=== PATIENT | male | born 1965 | race Caucasian/White ===

== ENCOUNTER 2022-03-28 17:42 | Inpatient (IN) | payer MEDICAID, MEDICARE, OTHER ==
--- NOTE | 2022-03-28 18:23 | ED ---
General Adult HPI - General Source: patient, police, EMS, RN notes reviewed, old records reviewed Mode of arrival: EMS Limitations: altered mental status <Zay Guerrero - Last Filed: 03/28/22 20:49> <Zay Truong - Last Filed: 03/29/22 03:12> - General Chief complaint: Psychiatric Symptoms Stated complaint: EPS eval Time Seen by Provider: 03/28/22 17:42 - History of Present Illness Initial comments: This is a 37-year-old male who has a past medical history significant for schizophrenia. According to the police girlfriend told him that he had stopped taking his meds a while ago. Patient has been acting more more bizarre over the last 3 days according to the officer they were called to the residence at least 3 times over the last few days. Patient was once found with a knife yelling and screaming neighbors. Patient on another occasion was rifling through the neighbor's mailbox. And today they found him crawling around on all fours not making any sense in the backyard. When the police took him into custody called EMS the patient is only been mumbling that he loves her. Patient does not state that his knee does not have any further conversation. (Zay Guerrero) - Related Data Allergies Allergy/AdvReac Type Severity Reaction Status Date / Time Unable to Assess Allergy Verified 03/28/22 17:51 Review of Systems ROS Other: All systems not noted in ROS Statement are negative. <Zay Guerrero - Last Filed: 03/28/22 20:49> ROS Other: All systems not noted in ROS Statement are negative. <Zay Truong - Last Filed: 03/29/22 03:12> ROS Statement: Those systems with pertinent positive or pertinent negative responses have been documented in the HPI. Past Medical History Past Medical History: Unable to Obtain History of Any Multi-Drug Resistant Organisms: Unobtainable Past Surgical History: Unable to Obtain Past Psychological History: Schizophrenia Smoking Status: Unknown if ever smoked Past Alcohol Use History: Unable to Obtain Past Drug Use History: Unable to Obtain <Zay Guerrero - Last Filed: 03/28/22 20:49> General Exam Limitations: altered mental status <Zay Guerrero - Last Filed: 03/28/22 20:49> Limitations: altered mental status General appearance: alert, in no apparent distress, anxious Head exam: Present: atraumatic, normocephalic, normal inspection Eye exam: Present: normal appearance, PERRL, EOMI. Absent: scleral icterus, conjunctival injection, periorbital swelling ENT exam: Present: normal exam, mucous membranes moist Neck exam: Present: normal inspection. Absent: tenderness, meningismus, lymphadenopathy Respiratory exam: Present: normal lung sounds bilaterally. Absent: respiratory distress, wheezes, rales, rhonchi, stridor Cardiovascular Exam: Present: regular rate, normal rhythm, normal heart sounds. Absent: systolic murmur, diastolic murmur, rubs, gallop, clicks GI/Abdominal exam: Present: soft, normal bowel sounds. Absent: distended, tenderness, guarding, rebound, rigid Extremities exam: Present: normal inspection, full ROM, normal capillary refill. Absent: tenderness, pedal edema, joint swelling, calf tenderness Back exam: Present: normal inspection Neurological exam: Present: alert, oriented X3, CN II-XII intact Psychiatric exam: Present: normal affect, normal mood Skin exam: Present: warm, dry, intact, normal color. Absent: rash <Zay Truong - Last Filed: 03/29/22 03:12> - General Exam Comments Initial Comments: GENERAL: Patient is well-developed and well-nourished. Patient is nontoxic and well- hydrated and is in no acute distress. ENT: Neck is soft and supple. No significant lymphadenopathy is noted. Oropharynx is clear. Moist mucous membranes. Neck has full range of motion without eliciting any pain. EYES: The sclera were anicteric and conjunctiva were pink and moist. Extraocular movements were intact and pupils were equal round and reactive to light. Eyelids were unremarkable. PULMONARY: Unlabored respirations. Good breath sounds bilaterally. No audible rales rhonchi or wheezing was noted. CARDIOVASCULAR: There is a regular rate and rhythm without any murmurs gallops or rubs. ABDOMEN: Soft and nontender with normal bowel sounds. SKIN: Skin is clear with no lesions or rashes and otherwise unremarkable. NEUROLOGIC: Patient is alert and oriented unable to assess orientation because he won't respond to questions. Cranial nerves II through XII are grossly intact. Motor and sensory are also intact. MUSCULOSKELETAL: Normal extremities with adequate strength and full range of motion. LYMPHATICS: No significant lymphadenopathy is noted PSYCHIATRIC: Patient is not speaking to us at this time he just mumbling that he loves her (Zay Guerrero) Course <Zay Truong - Last Filed: 03/29/22 03:12> Vital Signs 03/28/22 03/28/22 17:43 19:35 Temperature 98.1 F Pulse Rate 92 75 Respiratory 18 16 Rate Blood Pressure 121/74 O2 Sat by Pulse 98 100 Oximetry - Reevaluation(s) Reevaluation #1: 03/29/22 03:11 Medical record reviewed (Zay Truong) Reevaluation #2: 03/29/22 03:11 Medical clear for psychiatric evaluation (Zay Truong) Medical Decision Making - Lab Data Result diagrams: 03/28/22 18:06 03/28/22 18:06 <Zay Guerrero - Last Filed: 03/28/22 20:49> - Lab Data Result diagrams: 03/28/22 18:06 03/28/22 18:06 <Zay Truong - Last Filed: 03/29/22 03:12> - Medical Decision Making I interpreted the EKG. EKG shows sinus rhythm at 90 bpm DC interval 270 QRS is 90 QT interval 325 QTC is 372. Patient's EKG shows no ST segment elevation or depression. Dr. Truong be taking over the care of this patient at 9 PM (Zay Guerrero) 57 male to the emergency department for evaluation. Patient will be admitted for psychiatric evaluation and treatment (Zay Truong) - Lab Data Lab Results 03/28/22 03/28/22 03/28/22 Range/Units 18:06 18:06 19:35 WBC 15.8 H (3.8-10.6) k/uL RBC 4.67 (4.30-5.90) m/uL Hgb 15.2 (13.0-17.5) gm/dL Hct 41.8 (39.0-53.0) % MCV 89.6 (80.0-100.0) fL MCH 32.5 (25.0-35.0) pg MCHC 36.3 (31.0-37.0) g/dL RDW 13.5 (11.5-15.5) % Plt Count 526 H (150-450) k/uL MPV 7.7 Neutrophils % 86 % Lymphocytes % 7 % Monocytes % 5 % Eosinophils % 1 % Basophils % 0 % Neutrophils # 13.6 H (1.3-7.7) k/uL Lymphocytes # 1.1 (1.0-4.8) k/uL Monocytes # 0.7 (0-1.0) k/uL Eosinophils # 0.2 (0-0.7) k/uL Basophils # 0.1 (0-0.2) k/uL Sodium 141 (137-145) mmol/L Potassium 4.3 (3.5-5.1) mmol/L Chloride 107 (98-107) mmol/L Carbon Dioxide 19 L (22-30) mmol/L Anion Gap 15 mmol/L BUN 20 (9-20) mg/dL Creatinine 1.01 (0.66-1.25) mg/dL Est GFR (CKD-EPI)AfAm >90 (>60 ml/min/1.73 sqM) Est GFR (CKD-EPI)NonAf 83 (>60 ml/min/1.73 sqM) Glucose 130 H (74-99) mg/dL Calcium 10.3 H (8.4-10.2) mg/dL Total Bilirubin 0.5 (0.2-1.3) mg/dL AST 39 (17-59) U/L ALT 31 (4-49) U/L Alkaline Phosphatase 82 (38-126) U/L Total Protein 7.8 (6.3-8.2) g/dL Albumin 5.1 H (3.5-5.0) g/dL Urine Opiates Screen Not Detected (NotDetected) Ur Oxycodone Screen Not Detected (NotDetected) Urine Methadone Screen Not Detected (NotDetected) Ur Propoxyphene Screen Not Detected (NotDetected) Ur Barbiturates Screen Not Detected (NotDetected) U Tricyclic Antidepress Not Detected (NotDetected) Ur Phencyclidine Scrn Not Detected (NotDetected) Ur Amphetamines Screen Not Detected (NotDetected) U Methamphetamines Scrn Not Detected (NotDetected) U Benzodiazepines Scrn Not Detected (NotDetected) Urine Cocaine Screen Not Detected (NotDetected) U Marijuana (THC) Screen Not Detected (NotDetected) Serum Alcohol 59 mg/dL Coronavirus (PCR) (Not Detectd) 03/28/22 Range/Units 20:15 WBC (3.8-10.6) k/uL RBC (4.30-5.90) m/uL Hgb (13.0-17.5) gm/dL Hct (39.0-53.0) % MCV (80.0-100.0) fL MCH (25.0-35.0) pg MCHC (31.0-37.0) g/dL RDW (11.5-15.5) % Plt Count (150-450) k/uL MPV Neutrophils % % Lymphocytes % % Monocytes % % Eosinophils % % Basophils % % Neutrophils # (1.3-7.7) k/uL Lymphocytes # (1.0-4.8) k/uL Monocytes # (0-1.0) k/uL Eosinophils # (0-0.7) k/uL Basophils # (0-0.2) k/uL Sodium (137-145) mmol/L Potassium (3.5-5.1) mmol/L Chloride (98-107) mmol/L Carbon Dioxide (22-30) mmol/L Anion Gap mmol/L BUN (9-20) mg/dL Creatinine (0.66-1.25) mg/dL Est GFR (CKD-EPI)AfAm (>60 ml/min/1.73 sqM) Est GFR (CKD-EPI)NonAf (>60 ml/min/1.73 sqM) Glucose (74-99) mg/dL Calcium (8.4-10.2) mg/dL Total Bilirubin (0.2-1.3) mg/dL AST (17-59) U/L ALT (4-49) U/L Alkaline Phosphatase (38-126) U/L Total Protein (6.3-8.2) g/dL Albumin (3.5-5.0) g/dL Urine Opiates Screen (NotDetected) Ur Oxycodone Screen (NotDetected) Urine Methadone Screen (NotDetected) Ur Propoxyphene Screen (NotDetected) Ur Barbiturates Screen (NotDetected) U Tricyclic Antidepress (NotDetected) Ur Phencyclidine Scrn (NotDetected) Ur Amphetamines Screen (NotDetected) U Methamphetamines Scrn (NotDetected) U Benzodiazepines Scrn (NotDetected) Urine Cocaine Screen (NotDetected) U Marijuana (THC) Screen (NotDetected) Serum Alcohol mg/dL Coronavirus (PCR) Not Detected (Not Detectd) Disposition <Zay Guerrero - Last Filed: 03/28/22 20:49> Is patient prescribed a controlled substance at d/c from ED?: No <Zay Truong - Last Filed: 03/29/22 03:12> Clinical Impression: Psychosis, Drug-induced psychotic disorder, Acute psychosis, Depression Disposition: TRANSFER TO PSYCH HOSP/UNIT Condition: Fair
--- NOTE | 2022-03-28 18:25 | XR ---
EXAMINATION TYPE: XR chest 1V portable DATE OF EXAM: 03/28/2022 COMPARISON: NONE HISTORY: Short of breath TECHNIQUE: Single view FINDINGS: Heart is normal. Lungs are clear of infiltrate. Thoracic aorta is atheromatous. No pleural effusion. No heart failure. IMPRESSION: No active cardiopulmonary disease.
[2022-03-28 18:26] LABS: Basophils # (A) 0.1 k/uL (0-0.2); Basophils % (A) 0 %; Eosinophils # (A) 0.2 k/uL (0-0.7); Eosinophils % (A) 1 %; HCT 41.8 % (39.0-53.0); HGB 15.2 gm/dL (13.0-17.5); Lymphocytes # (A) 1.1 k/uL (1.0-4.8); Lymphocytes % (A) 7 %; MCH 32.5 pg (25.0-35.0); MCHC 36.3 g/dL (31.0-37.0); MCV 89.6 fL (80.0-100.0); Mean Platelet Volume 7.7; Monocytes # (A) 0.7 k/uL (0-1.0); Monocytes % (A) 5 %; Neutrophils # (A) 13.6 k/uL (1.3-7.7); Neutrophils % (A) 86 %; Platelet Count 526 k/uL (150-450); RBC 4.67 m/uL (4.30-5.90); RDW 13.5 % (11.5-15.5); WBC 15.8 k/uL (3.8-10.6)
[2022-03-28] MEDS ORDERED: SODIUM CHLORIDE 0.9% 1,000 ML IV ONE (18:44)
[2022-03-28 18:45] LABS: ALT 31 U/L (4-49); AST 39 U/L (17-59); African American GFR (CKD) >90 (>60 ml/min/1.73 sqM); Albumin 5.1 g/dL (3.5-5.0); Alcohol 59 mg/dL; Alkaline Phosphatase 82 U/L (38-126); Anion Gap 15 mmol/L; Blood Urea Nitrogen 20 mg/dL (9-20); Calcium 10.3 mg/dL (8.4-10.2); Carbon Dioxide 19 mmol/L (22-30); Chloride 107 mmol/L (98-107); Glucose 130 mg/dL (74-99); Non-African American GFR(CKD) 83 (>60 ml/min/1.73 sqM); Potassium 4.3 mmol/L (3.5-5.1); Sodium 141 mmol/L (137-145); Total Bilirubin 0.5 mg/dL (0.2-1.3); Total Protein 7.8 g/dL (6.3-8.2)
[2022-03-28 20:23] LABS: Amphetamine Screen,Urine Not Detected (NotDetected); Barbiturate Screen,Urine Not Detected (NotDetected); Benzodiazepines Screen,Urine Not Detected (NotDetected); Cocaine Screen,Urine Not Detected (NotDetected); Methadone Screen, Urine Not Detected (NotDetected); Opiate Screen,Urine Not Detected (NotDetected); Oxycodone Screen, Urine Not Detected (NotDetected); Phencyclidine Screen,Urine Not Detected (NotDetected); Tricyclic Antidepressant,Urine Not Detected (NotDetected); Urn Cannabinoid Scrn Not Detected (NotDetected)
[2022-03-29] MEDS ORDERED: LORazepam 1 MG TAB PO PRN ×2 (03:08)
[2022-03-29] MEDS ORDERED: MAGNESIUM HYDROXIDE 2,400 MG/10 ML CUP PO PRN (03:08)
[2022-03-29] MEDS ORDERED: HALOPERIDOL LACTATE 5 MG/ML 1 ML VIAL IM PRN (03:08)
[2022-03-29] MEDS ORDERED: LORazepam 1 MG/0.5 ML VIAL IM PRN (03:17)
[2022-03-29] MEDS ORDERED: haloperidoL 5 MG TAB PO PRN (03:18)
[2022-03-29] MEDS: LORazepam 1 MG TAB PO PRN (03:34)
[2022-03-29 04:19] LABS: Appearance,Urine Cloudy (Clear); Bacteria,Urine Occasional /hpf; Bilirubin,Urine Negative (Negative); Blood,Urine Negative (Negative); Calcium Oxalate Crystals,Urine Moderate /hpf; Color,Urine Yellow; Glucose,Urine (UA) Negative (Negative); Ketones,Urine Trace (Negative); Leukocyte Esterase,Urine Negative (Negative); Mucus,Urine Occasional /hpf; Nitrite,Urine Negative (Negative); PH, Urine 6.5 (5.0-8.0); Protein,Urine 1+ (Negative); RBC,Urine 4 /hpf (0-5); Specific Gravity,Urine 1.025 (1.001-1.035); Squamous Epithelial Cell,Urine <1 /hpf (0-4); WBC,Urine 8 /hpf (0-5)
[2022-03-29] MEDS ORDERED: MAG HYDROX/AL HYDROX/SIMETH 355 ML BOTTLE PO PRN (08:00)
[2022-03-29 08:15] LABS: ALT 31 U/L (4-49); AST 41 U/L (17-59); Albumin 4.4 g/dL (3.5-5.0); Alkaline Phosphatase 70 U/L (38-126); Bilirubin, Delta 0.3 mg/dL (0.0-0.2); Bilirubin,Unconjugated 0.3 mg/dL (0.0-1.1); Total Bilirubin 0.6 mg/dL (0.2-1.3); Total Protein 6.9 g/dL (6.3-8.2)
[2022-03-29] MEDS ORDERED: diazePAM 5 MG TAB PO SCH (09:00)
[2022-03-29] MEDS ORDERED: traZODone HCL 50 MG TAB PO PRN (10:20)
--- NOTE | 2022-03-29 10:39 | P.HP ---
Psychiatric H&P - . H&P Date: 03/29/22 History & Physical: Allergies Allergy/AdvReac Type Severity Reaction Status Date / Time cephalexin From Keflex Allergy Intermediate Rash/Hives Verified 03/29/22 04:08 Vital Signs Temp 98.7 F 03/29/22 10:09 Pulse 67 03/29/22 10:09 Resp 17 03/29/22 10:09 BP 149/82 03/29/22 10:09 Pulse Ox 99 03/29/22 10:09 FiO2 Intake & Output 03/28/22 03/29/22 03/29/22 18:59 06:59 18:59 Weight 68.039 kg Laboratory Last Values WBC 15.8 k/uL (3.8-10.6) H 03/28/22 18:06 RBC 4.67 m/uL (4.30-5.90) 03/28/22 18:06 Hgb 15.2 gm/dL (13.0-17.5) 03/28/22 18:06 Hct 41.8 % (39.0-53.0) 03/28/22 18:06 MCV 89.6 fL (80.0-100.0) 03/28/22 18:06 MCH 32.5 pg (25.0-35.0) 03/28/22 18:06 MCHC 36.3 g/dL (31.0-37.0) 03/28/22 18:06 RDW 13.5 % (11.5-15.5) 03/28/22 18:06 Plt Count 526 k/uL (150-450) H 03/28/22 18:06 MPV 7.7 03/28/22 18:06 Neutrophils % 86 % 03/28/22 18:06 Lymphocytes % 7 % 03/28/22 18:06 Monocytes % 5 % 03/28/22 18:06 Eosinophils % 1 % 03/28/22 18:06 Basophils % 0 % 03/28/22 18:06 Neutrophils # 13.6 k/uL (1.3-7.7) H 03/28/22 18:06 Lymphocytes # 1.1 k/uL (1.0-4.8) 03/28/22 18:06 Monocytes # 0.7 k/uL (0-1.0) 03/28/22 18:06 Eosinophils # 0.2 k/uL (0-0.7) 03/28/22 18:06 Basophils # 0.1 k/uL (0-0.2) 03/28/22 18:06 Sodium 141 mmol/L (137-145) 03/28/22 18:06 Potassium 4.3 mmol/L (3.5-5.1) 03/28/22 18:06 Chloride 107 mmol/L (98-107) 03/28/22 18:06 Carbon Dioxide 19 mmol/L (22-30) L 03/28/22 18:06 Anion Gap 15 mmol/L 03/28/22 18:06 BUN 20 mg/dL (9-20) 03/28/22 18:06 Creatinine 1.01 mg/dL (0.66-1.25) 03/28/22 18:06 Est GFR (CKD-EPI)AfAm >90 (>60 ml/min/1.73 sqM) 03/28/22 18:06 Est GFR (CKD-EPI)NonAf 83 (>60 ml/min/1.73 sqM) 03/28/22 18:06 Glucose 130 mg/dL (74-99) H 03/28/22 18:06 Calcium 10.3 mg/dL (8.4-10.2) H 03/28/22 18:06 Total Bilirubin 0.6 mg/dL (0.2-1.3) 03/29/22 07:14 Conjugated Bilirubin 0.0 mg/dL (0.0-0.3) 03/29/22 07:14 Unconjugated Bilirubin 0.3 mg/dL (0.0-1.1) 03/29/22 07:14 Delta Bilirubin 0.3 mg/dL (0.0-0.2) H 03/29/22 07:14 AST 41 U/L (17-59) 03/29/22 07:14 ALT 31 U/L (4-49) 03/29/22 07:14 Alkaline Phosphatase 70 U/L (38-126) 03/29/22 07:14 Total Protein 6.9 g/dL (6.3-8.2) 03/29/22 07:14 Albumin 4.4 g/dL (3.5-5.0) 03/29/22 07:14 TSH 1.950 mIU/L (0.465-4.680) 03/29/22 07:14 Urine Color Yellow 03/28/22 19:35 Urine Appearance Cloudy (Clear) 03/28/22 19:35 Urine pH 6.5 (5.0-8.0) 03/28/22 19:35 Ur Specific [place] 1.025 (1.001-1.035) 03/28/22 19:35 Urine Protein 1+ (Negative) H 03/28/22 19:35 Urine Glucose (UA) Negative (Negative) 03/28/22 19:35 Urine Ketones Trace (Negative) H 03/28/22 19:35 Urine Blood Negative (Negative) 03/28/22 19:35 Urine Nitrite Negative (Negative) 03/28/22 19:35 Urine Bilirubin Negative (Negative) 03/28/22 19:35 Urine Urobilinogen 3.0 mg/dL (<2.0) 03/28/22 19:35 Ur Leukocyte Esterase Negative (Negative) 03/28/22 19:35 Urine RBC 4 /hpf (0-5) 03/28/22 19:35 Urine WBC 8 /hpf (0-5) H 03/28/22 19:35 Ur Squamous Epith Cells <1 /hpf (0-4) 03/28/22 19:35 Calcium Oxalate Crystal Moderate /hpf (None) H 03/28/22 19:35 Urine Bacteria Occasional /hpf (None) H 03/28/22 19:35 Urine Mucus Occasional /hpf (None) H 03/28/22 19:35 Urine Opiates Screen Not Detected (NotDetected) 03/28/22 19:35 Ur Oxycodone Screen Not Detected (NotDetected) 03/28/22 19:35 Urine Methadone Screen Not Detected (NotDetected) 03/28/22 19:35 Ur Propoxyphene Screen Not Detected (NotDetected) 03/28/22 19:35 Ur Barbiturates Screen Not Detected (NotDetected) 03/28/22 19:35 U Tricyclic Antidepress Not Detected (NotDetected) 03/28/22 19:35 Ur Phencyclidine Scrn Not Detected (NotDetected) 03/28/22 19:35 Ur Amphetamines Screen Not Detected (NotDetected) 03/28/22 19:35 U Methamphetamines Scrn Not Detected (NotDetected) 03/28/22 19:35 U Benzodiazepines Scrn Not Detected (NotDetected) 03/28/22 19:35 Urine Cocaine Screen Not Detected (NotDetected) 03/28/22 19:35 U Marijuana (THC) Screen Not Detected (NotDetected) 03/28/22 19:35 Serum Alcohol 59 mg/dL 03/28/22 18:06 Coronavirus (PCR) Not Detected (Not Detectd) 03/28/22 20:15 03/29/22 10:27 IDENTIFYING DATA: Patient is a 57-year-old male with a history of schizophrenia and alcohol abuse who presented to ER by police with petition by patient's relative HPI: Patient presented to the hospital yesterday for evaluation and the ER. According to ER report patient has a history of schizophrenia and alcohol abuse and had a blood alcohol level of 59. Patients girlfriend apparently had stated to police that patient stopped taking his medications "a while ago" and has been acting more bizarre and apparently walking around with a knife yelling at his neighbors and also rifling through their mailbox. Apparently patient has also been acting bizarre and crawling on the floor. According to petition written by patient's relative states that patient is "erratic behavior, agitated, catatonic. Adalberto has not refilled his meds since May. Brian today on 03/28/22 was crawling on the grounds during breaks and flower pots etc. avoiding eye contact and offering no verbal communication". The petition also states that "Brian has been talking to himself on the sidewalk while swinging around a knife. Brian was also looking in his neighbors mailbox." Patient apparently has a history of alcohol abuse and according TPS report has had a history of significant alcohol withdrawal. Patient was admitted involuntarily to the mental health unit. Patient was seen laying in bed this morning and appeared to be responding to internal stimuli. He had very poor attention span and was looking at the ceiling. He only responded to some questions and for the most part was mumbling and difficult to comprehend. Disorganized speech and thought process. He spoke about coming from "[facility]". She continues to perseverate on "being brought here by the ambulance". He was inappropriate in some of his answers and fairly bizarre and illogical. He is denying any depression or anxiety. He spoke about smoking a "cigar" before coming into the hospital. He appears to have poor reality testing, poor insight and judgment. He appeared to be disheveled in appearance and did not want to speak about medications. He was alert and oriented to person and place only. Patient denies any current suicidal or homicidal ideations intent or plan. At this time patient denies any auditory or visual hallucinations however is responding to internal stimuli. Patient denies any flight of ideas racing thoughts and increased in goal directed behavior. Patient admits to using alcohol cigarettes and marijuana and his UDS was negative on admission. PAST PSYCHIATRIC HISTORY: Patient apparently has a hx of schizophrenia and subtance abuse. Patient denies being on any psychiatric medications however as per EPS patient was previously on Rsiperdal. Patient denies any previous psychiatric hospitalizations. Patient denies any psychiatric outpatient follow- up. PMH:unable to obtain due to mental status ALLERGIES: as per EMR CHEMICAL DEPENDENCY HISTORY: as per HPI FAMILY PSYCHIATRIC/SUBSTANCE USE HISTORY:unable to obtain due to mental status SOCIAL HISTORY: unable to obtain due to mental status MENTAL STATUS EXAM: General Appearance: Patient appears to be discheveled in appearance, franklin and longer hair, stated age is alert, disorganized bizarre and responding to internal stimuli. Patient appears to have poor hygiene and grooming. [facility] gown. Behavior: Patient is seated without any agitated behavior. bizarre, responding to internal stimuli. Speech: Patient's speech is difficult to comprehend, mubling/garbled. Mood/Affect: Patient reports their mood is "ok", affect is incongruent and constricted. Suicidality/Homicidality: Patient denies having any homicidal ideation intent or plan. Denies any suicidal ideations intent or plan Perceptions: Patient denies any visual hallucinations and denies any auditory hallucinations Though content/process: Illogical, loose associations, inappropriate. No paranoia or delusions. Grossly disorganized. Memory and concentration: AOX2, however does not know todays date. Cannot spell "WORLD" backwards Judgment and insight: poor STRENGTHS/WEAKNESSES: strength is that patient is resilient. Weakness is that patient has subtance abuse issues, non compliant with treatment. INTELLECT: average IMPRESSIONS: Psychosis unspecified Alcohol abuse, currently in withdrawal Cannabis use disorder, by history Nicotine dependence PLAN: -Patient is admitted under involuntary status to MHU for stabilization of psychiatric symptoms and safety. Patient has not signed adult voluntary form and medication consent and is placed in patient's chart. A second certification was completed and along with petition will be filed for court. -Medications : Will start patient on paliperidone by mouth 3 mg daily at bedtime for psychosis. Trazodone 50 mg daily at bedtime when necessary for insomnia. Librium 25 mg 3 times a day for alcohol withdrawal. -Ativan and Haldol PRN for agitation/aggression -Started thiamine, MVM for etoh use -CIWA protocol with Ativan PRN for ETOH withdrawal -Patient was informed of the risks, benefits and side effects of the medication and patient was not able to sign for medications. -Internal Medicine consult to perform medical evaluation and physical. -NRT - nicotine patch -SW on board for discharge planning. Encourage patient to participate in groups to work on coping skills. Will await deferral and court date.
[2022-03-29] MEDS: NICOTINE 14MG/24HR PATCH TRANSDERM SCH (10:58)
[2022-03-29] MEDS: chlordiazePOXIDE 25 MG CAP PO SCH ×3 (11:26→22:55)
[2022-03-29] MEDS: FOLIC ACID 1 MG TAB PO SCH (11:26)
[2022-03-29] MEDS: MULTIVITAMINS, THERA 1 EACH TAB PO SCH (11:26)
[2022-03-29] MEDS: THIAMINE 100 MG TAB PO SCH (11:26)
[2022-03-29] MEDS ORDERED: ONDANSETRON 4 MG TAB PO PRN (15:26)
[2022-03-29 16:24] LABS: Chol/HDL Ratio 2.98 Ratio; LDL Cholesterol,Calculated 115.2 mg/dL (0.0-131.0); VLDL Calculation 13.56 mg/dL (5.00-40.00)
[2022-03-29] MEDS ORDERED: LORazepam 2 MG/ML INJ IM PRN (18:03)
--- NOTE | 2022-03-29 19:05 | P.CONS ---
History of Present Illness - Reason for Consult Consult date: 03/29/22 Medical management Requesting physician: Mateus Caldwell - Chief Complaint Erratic behavior - History of Present Illness Patient is not a good historian because of his condition. Falling below is a note bythe psychiatrist. "HPI: Patient presented to the hospital yesterday for evaluation and the ER. According to ER report patient has a history of schizophrenia and alcohol abuse and had a blood alcohol level of 59. Patients girlfriend apparently had stated to police that patient stopped taking his medications "a while ago" and has been acting more bizarre and apparently walking around with a knife yelling at his neighbors and also rifling through their mailbox. Apparently patient has also been acting bizarre and crawling on the floor. According to petition written by patient's relative states that patient is "erratic behavior, agitated, catatonic. Adalberto has not refilled his meds since May. Brian today on 03/28/22 was crawling on the grounds during breaks and flower pots etc. avoiding eye contact and offering no verbal communication". The petition also states that "Brian has been talking to himself on the sidewalk while swinging around a knife. Brian was also looking in his neighbors mailbox." Patient apparently has a history of alcohol abuse and according TPS report has had a history of significant alcohol withdrawal. Patient was admitted involuntarily to the mental health unit. Patient was seen laying in bed this morning and appeared to be responding to internal stimuli. He had very poor attention span and was looking at the ceiling. He only responded to some questions and for the most part was mumbling and difficult to comprehend. Disorganized speech and thought process. He spoke about coming from "[facility]". She continues to perseverate on "being brought here by the ambulance". He was inappropriate in some of his answers and fairly bizarre and illogical. He is denying any depression or anxiety. He spoke about smoking a "cigar" before coming into the hospital. He appears to have poor reality testing, poor insight and judgment. He appeared to be disheveled in appearance and did not want to speak about medic ations. He was alert and oriented to person and place only. Patient denies any current suicidal or homicidal ideations intent or plan. At this time patient denies any auditory or visual hallucinations however is responding to internal stimuli. Patient denies any flight of ideas racing thoughts and increased in goal directed behavior. Patient admits to using alcohol cigarettes and marijuana and his UDS was negative on admission". Patient is somewhat fidgety when I'm trying to interview the patient. Looking about. He does not answer much. Sporadic about his answers. Review of systems: GEN.: None EYES: None HEENT: None NECK: None RESPIRATORY: None CARDIOVASCULAR: None GASTROINTESTINAL: None GENITOURINARY: None MUSCULOSKELETAL: None LYMPHATICS: None HEMATOLOGICAL: None PSYCHIATRY: As above] NEUROLOGICAL: None Past medical history to include: Schizophrenia, substance abuse Social history: Unable to obtain Family history: Unable to obtain Physical examination: VITAL SIGNS: 98.7, 67, 17, 1 49 x 82, 99% room air GENERAL: BMI 22.2, sitting up in chair somewhat fidgety looking around. EYES: Pupils equal. Conjunctiva normal. HEENT: External appearance of nose and ears normal, oral cavity grossly normal. NECK: JVD not raised; masses not palpable. HEART: First and second heart sounds are normal; no edema. LUNGS: Respiratory rate normal; clear to auscultation. ABDOMEN: Soft, nontender, liver spleen not palpable, no masses palpable. PSYCH: [Difficult to assess l. MUSCULOSKELETAL:No Clubbing/cyanosis;muscles-grossly intact NEUROLOGICAL: Cranial nerves grossly intact; no facial asymmetry, power and sensation grossly intact. INVESTIGATIONS, reviewed in the clinical context: White count 15.8 hemoglobin 15.2 platelets 526 potassium 4.3 creatinine 1.01 TSH 1.9 LDL 115.2 UA positive for protein 1+ trace ketone calcium oxalate crystal. Urine drug screen: Negative COVID 19: Not detected Assessment and plan: -Chronic nicotine dependence, cigarette smoker Nicotine patch -History of marijuana use, currently urine negative for the same -Alcohol use disorder, watch for withdrawal CIWA scale -Psychosis not otherwise specified Medications per psychiatrist Because of patient's psychosis difficult to hold a conversation with the patient. Nicotine patch. CIWA scale. Other medications per psychiatry. Thank you Past Medical History Past Medical History: Unable to Obtain History of Any Multi-Drug Resistant Organisms: Unobtainable Past Surgical History: Unable to Obtain Smoking Status: Current every day smoker, Unknown if ever smoked Medications and Allergies Home Medications Medication Instructions Recorded Confirmed Type Lovastatin [Mevacor] 20 mg PO DAILY 03/28/22 03/29/22 History risperiDONE 2 mg PO DIRECTED 03/28/22 03/29/22 History Terbinafine [LamISIL] 250 mg PO DAILY 03/29/22 03/29/22 History Allergies Allergy/AdvReac Type Severity Reaction Status Date / Time cephalexin [From Keflex] Allergy Intermediate Rash/Hives Verified 03/29/22 04:08 Physical Exam Vitals: Vital Signs Temp Pulse Pulse Resp BP BP Pulse Ox 03/29/22 03:53 98.2 F 67 18 144/72 03/28/22 19:35 75 16 100 03/28/22 17:43 98.1 F 92 18 121/74 98 Intake and Output 03/28/22 03/29/22 03/29/22 22:59 06:59 14:59 Other: Weight 68.039 kg Results CBC & Chem 7: 03/28/22 18:06 03/28/22 18:06 Labs: Abnormal Lab Results - Last 24 Hours (Table) 03/28/22 03/28/22 03/28/22 Range/Units 18:06 18:06 19:35 WBC 15.8 H (3.8-10.6) k/uL Plt Count 526 H (150-450) k/uL Neutrophils # 13.6 H (1.3-7.7) k/uL Carbon Dioxide 19 L (22-30) mmol/L Glucose 130 H (74-99) mg/dL Calcium 10.3 H (8.4-10.2) mg/dL Delta Bilirubin (0.0-0.2) mg/dL Albumin 5.1 H (3.5-5.0) g/dL Urine Protein 1+ H (Negative) Urine Ketones Trace H (Negative) Urine WBC 8 H (0-5) /hpf Calcium Oxalate Crystal Moderate H (None) /hpf Urine Bacteria Occasional H (None) /hpf Urine Mucus Occasional H (None) /hpf 03/29/22 Range/Units 07:14 WBC (3.8-10.6) k/uL Plt Count (150-450) k/uL Neutrophils # (1.3-7.7) k/uL Carbon Dioxide (22-30) mmol/L Glucose (74-99) mg/dL Calcium (8.4-10.2) mg/dL Delta Bilirubin 0.3 H (0.0-0.2) mg/dL Albumin (3.5-5.0) g/dL Urine Protein (Negative) Urine Ketones (Negative) Urine WBC (0-5) /hpf Calcium Oxalate Crystal (None) /hpf Urine Bacteria (None) /hpf Urine Mucus (None) /hpf
[2022-03-29] MEDS ORDERED: PALIPERIDONE 3 MG TAB.ER.24 PO SCH (21:00)
[2022-03-30] MEDS: chlordiazePOXIDE 25 MG CAP PO SCH (08:46)
[2022-03-30] MEDS: MULTIVITAMINS, THERA 1 EACH TAB PO SCH (08:46)
[2022-03-30] MEDS: FOLIC ACID 1 MG TAB PO SCH (08:46)
[2022-03-30] MEDS: NICOTINE 14MG/24HR PATCH TRANSDERM SCH ×2 (08:46→08:49)
[2022-03-30] MEDS: THIAMINE 100 MG TAB PO SCH (08:46)
[2022-03-30] MEDS: LORazepam 1 MG TAB PO PRN (09:33)
--- NOTE | 2022-03-30 10:06 | P.PN ---
Progress Note - Text Progress Note Date: 03/30/22 Interval History: Patient was seen wandering the hallways with a one-to-one sitter and was at the medication window initially and wandered back to his room. Patient refused his nighttime medications yesterday however did take his a.m. medications today. Patient apparently was reported to be wandering in the patient's rooms and acting grossly bizarre and disorganized. Patient was hiding behind his door in his room today when proposal lead writer proposal lead writer approached him. Patient appeared to have an improvement in his grooming today. He continues to be disorganized in his thought process and also his speech. He continues to mumble at times and was preoccupied with "getting my watch". She was illogical with loose associations. Appeared to be responding to internal stimuli. He initially states that he does hear voices however was not able to elaborate on this. Denying any depression at this time. He was alert and oriented 3 today however does not know his situation for being in the hospital. Supervisor [employer] attempted to speak to patient about medications however patient did not answer questions a ppropriately. At this time patient denies any suicidal or homical ideations, intent or plan. Patient denies any visual hallucinations and denies any paranoia or delusions. Mental Status Exam: General Appearance: Patient appears to be franklin and longer hair, stated age is alert, disorganized bizarre and responding to internal stimuli. Patient appears to have improving hygiene and grooming. Wearing hospital gown. Behavior: Patient is seated without any agitated behavior. bizarre, responding to internal stimuli. Speech: Patient's speech is difficult to comprehend, mubling/garbled. Mood/Affect: Patient reports their mood is "ok", affect is incongruent and constricted. Suicidality/Homicidality: Patient denies having any homicidal ideation intent or plan. Denies any suicidal ideations intent or plan Perceptions: Patient denies any visual hallucinations and admits to auditory hallucinations Though content/process: Illogical, loose associations, inappropriate. No paranoia or delusions. Grossly disorganized. Memory and concentration: AOX3, poor attention span. Does not know his situation. Judgment and insight: poor IMPRESSIONS: Psychosis unspecified Alcohol abuse, currently in withdrawal Cannabis use disorder, by history Nicotine dependence Plan: -Patient continues to meet criteria for inpatient psychiatric admission for symptom stabilization and safety. Patient has not signed adult voluntary form and medication consent and was placed in patient's chart. -Medications: Changed paliperidone by mouth to 6 mg daily for psychosis. Change trazodone to 50 mg daily at bedtime scheduled for insomnia/mood. Decrease Librium to 20 mg 3 times a day for alcohol withdrawal symptoms. -When necessary Ativan and Haldol for agitation/aggression. -thiamine, MVM for etoh use -CIWA protocol with Ativan PRN for ETOH withdrawal -NRT - nicotine patch -SW on board for discharge planning. Encouraged the patient to participate in milieu. Currently awaiting deferral with commercial attorney and court date.
[2022-03-30] MEDS: PALIPERIDONE 6 MG TAB.ER.24 PO SCH (10:11)
[2022-03-30] MEDS: traZODone HCL 50 MG TAB PO SCH ×2 (21:15→21:20)
--- NOTE | 2022-03-31 10:08 | P.PN ---
Progress Note - Text Progress Note Date: 03/31/22 Interval History: Patient was seen being in his bed today and appeared to be fairly lethargic. Patient did take his medications paliperidone by mouth both yesterday and this morning. He appeared to be fairly groggy and briefly answered some questions. He denied any complaints with the medications and overnight. States that he slept okay. He is denying any depression or anxiety. Very concrete, appears to have mild improvement in his hygiene today. Patient is denying any auditory or visual hallucinations today. Denying any suicidal or homicidal ideations intent or plan. Patient turned over to the side and stopped answering questions from publications writer and went back to sleep. Mental Status Exam: General Appearance: Patient appears to be franklin and longer hair, stated age is lethargic, less disorganized bizarre and less responding to internal stimuli. Patient appears to have improving hygiene and grooming. Behavior: Patient is laying in bed, sleepy without any agitated behavior. less responding to internal stimuli. Speech: Patient's speech is difficult to comprehend, mubling/garbled, oddly improving Mood/Affect: Patient reports their mood is "ok", affect is incongruent and constricted. Suicidality/Homicidality: Patient denies having any homicidal ideation intent or plan. Denies any suicidal ideations intent or plan Perceptions: Patient denies any visual hallucinations and admits to auditory hallucinations Though content/process: [place], monotone. No delusions. Memory and concentration: Unable to assess due to patient's sedation. Judgment and insight: poor IMPRESSIONS: Psychosis unspecified Alcohol abuse, currently in withdrawal Cannabis use disorder, by history Nicotine dependence Plan: -Patient continues to meet criteria for inpatient psychiatric admission for symptom stabilization and safety. Patient has not signed adult voluntary form and medication consent and was placed in patient's chart. -Medications: Continue paliperidone by mouth to 6 mg daily for psychosis and consider switching to nightime or increasing over the weekend if needed. trazod one 50 mg daily at bedtime scheduled for insomnia/mood. will continue to titrate librium dose down over the weekend. -When necessary Ativan and Haldol for agitation/aggression. -thiamine, MVM for etoh use -CIWA protocol with Ativan PRN for ETOH withdrawal -NRT - nicotine patch -SW on board for discharge planning. Encouraged the patient to participate in milieu. Currently awaiting deferral with deputy prosecuting attorney and court date.
[2022-03-31] MEDS: FOLIC ACID 1 MG TAB PO SCH (10:14)
[2022-03-31] MEDS: THIAMINE 100 MG TAB PO SCH (10:14)
[2022-03-31] MEDS: PALIPERIDONE 6 MG TAB.ER.24 PO SCH (10:14)
[2022-03-31] MEDS: MULTIVITAMINS, THERA 1 EACH TAB PO SCH (10:14)
[2022-03-31] MEDS: NICOTINE 14MG/24HR PATCH TRANSDERM SCH (10:16)
[2022-03-31] MEDS: traZODone HCL 50 MG TAB PO SCH (21:27)
[2022-04-01] MEDS ORDERED: LORazepam 1 MG TAB PO STA (04:21)
[2022-04-01] MEDS: PALIPERIDONE 6 MG TAB.ER.24 PO SCH (14:55)
[2022-04-01] MEDS: FOLIC ACID 1 MG TAB PO SCH (14:56)
[2022-04-01] MEDS: MULTIVITAMINS, THERA 1 EACH TAB PO SCH (14:56)
[2022-04-01] MEDS: THIAMINE 100 MG TAB PO SCH (14:56)
[2022-04-01] MEDS: LORazepam 1 MG TAB PO PRN (15:00)
[2022-04-01] MEDS: NICOTINE 14MG/24HR PATCH TRANSDERM SCH (15:04)
--- NOTE | 2022-04-01 15:58 | P.PN ---
Progress Note - Text Progress Note Date: 04/01/22 Interval History: Overnight, patient was pacing and would not sleep. He also grabbed a nurse's top and required Haldol and Ativan. He was subsequently placed on a one-to-one by this provider. A shunt was sleeping for the entire morning today. He was observed to be walking to the day room and was minimally verbal when spoken to. Although he would not answer to his name, when this provider made eye contact, patient acknowledged that he heard. He mutters that he has been "tired ". He reports having taken his morning medications in the afternoon. He denies side effects or concerns. Patient is denying any auditory or visual hallucinations today. Denying any suicidal or homicidal ideations intent or plan. Patient was given Ativan 1 mg by mouth this afternoon to help with alcohol withdrawal in addition to Librium. Mental Status Exam: General Appearance: Patient appears to be franklin and longer hair, stated age is lethargic, disorganized bizarre and less responding to internal stimuli. Behavior: Patient is laying in bed, sleepy without any agitated behavior. less responding to internal stimuli. Speech: Patient's speech is difficult to comprehend, mumbling/garbled, oddly improving Mood/Affect: Patient reports their mood is "ok", affect is incongruent and constricted. Suicidality/Homicidality: Patient denies having any homicidal ideation intent or plan. Denies any suicidal ideations intent or plan Perceptions: Patient denies any visual hallucinations and admits to auditory hallucinations Though content/process: [place], brief responses. monotone. No delusions. Memory and concentration: Unable to assess due to patient's sedation. Judgment and insight: poor IMPRESSIONS: Psychosis unspecified Alcohol use disorder, currently in withdrawal Cannabis use disorder, by history Nicotine dependence R/o catatonia Plan: -Patient continues to meet criteria for inpatient psychiatric admission for symptom stabilization and safety. Patient has not signed adult voluntary form and medication consent and was placed in patient's chart. -Medications: Increase paliperidone to 9 mg qHS for psychosis. trazodone 50 mg daily at bedtime scheduled for insomnia/mood. will continue to titrate librium dose down over the weekend. -When necessary Ativan and Haldol for agitation/aggression. -thiamine, MVM for etoh use -CIWA protocol with Ativan PRN for ETOH withdrawal -NRT - nicotine patch -SW on board for discharge planning. Encouraged the patient to participate in milieu. Currently awaiting deferral with psychiatric assistant and court date.
[2022-04-01] MEDS ORDERED: PALIPERIDONE 3 MG TAB.ER.24 PO SCH (21:00)
[2022-04-01] MEDS: traZODone HCL 50 MG TAB PO SCH (21:25)
[2022-04-02] MEDS: NICOTINE 14MG/24HR PATCH TRANSDERM SCH (10:50)
[2022-04-02] MEDS: FOLIC ACID 1 MG TAB PO SCH (10:50)
[2022-04-02] MEDS: THIAMINE 100 MG TAB PO SCH (10:50)
[2022-04-02] MEDS: MULTIVITAMINS, THERA 1 EACH TAB PO SCH (10:50)
--- NOTE | 2022-04-02 18:54 | P.PN ---
Progress Note - Text Progress Note Date: 04/02/22 Interval History: Overnight, patient was sleeping and was behaving appropriately yesterday. Tod ay, patient continues to be sleeping this morning. When this provider attempted to speak with him later, patient was minimally communicative and did not indicate any concerns. He was standing bizarrely at the corner of the muller and would not speak further. However, patient was refusing all of his medications so far today. Mental Status Exam: General Appearance: Patient appears to be franklin and longer hair, stated age is lethargic, disorganized bizarre. Behavior: sleepy without any agitated behavior. less responding to internal stimuli. Speech: Patient's speech is difficult to comprehend, mumbling/garbled, oddly improving Mood/Affect: Unable to assess, affect is flat. Suicidality/Homicidality: Patient denies having any homicidal ideation intent or plan. Denies any suicidal ideations intent or plan Perceptions: Patient denies any visual hallucinations and admits to auditory hallucinations Though content/process: [place], brief responses. monotone. No delusions. Memory and concentration: Unable to assess due to patient's sedation. Judgment and insight: poor IMPRESSIONS: Psychosis unspecified Alcohol use disorder, currently in withdrawal Cannabis use disorder, by history Nicotine dependence R/o catatonia Plan: -Patient continues to meet criteria for inpatient psychiatric admission for symptom stabilization and safety. Patient has not signed adult voluntary form and medication consent and was placed in patient's chart. -Medications: Continue paliperidone 9 mg qHS for psychosis. trazodone 50 mg daily at bedtime scheduled for insomnia/mood. will continue to titrate librium dose down over the weekend. -When necessary Ativan and Haldol for agitation/aggression. -thiamine, MVM for etoh use -CIWA protocol with Ativan PRN for ETOH withdrawal- CIWA was 1 on 04/01 -NRT - nicotine patch -SW on board for discharge planning. Encouraged the patient to participate in milieu. Currently awaiting deferral with collections attorney and court date.
[2022-04-02] MEDS: PALIPERIDONE 3 MG TAB.ER.24 PO SCH ×2 (20:48→21:12)
[2022-04-02] MEDS: traZODone HCL 50 MG TAB PO SCH ×2 (20:49→21:12)
[2022-04-03] MEDS: NICOTINE 14MG/24HR PATCH TRANSDERM SCH (09:00)
[2022-04-03] MEDS: THIAMINE 100 MG TAB PO SCH (09:01)
[2022-04-03] MEDS: MULTIVITAMINS, THERA 1 EACH TAB PO SCH (09:01)
[2022-04-03] MEDS: FOLIC ACID 1 MG TAB PO SCH (09:02)
--- NOTE | 2022-04-03 11:23 | P.PN ---
Progress Note - Text Progress Note Date: 04/03/22 Interval History: Patient was seen in the hallways today, well groomed appearance. He was standing near the nurses station holding a folder with papers. Optometric Aide approached him to be interviewed but patient did not respond and simply starred. He did not follow any commands or answer any questions today. Mental Status Exam: General Appearance: Patient appears to be franklin and longer hair, stated age is lethargic, disorganized bizarre. Patient appears to have improving hygiene and grooming. Behavior: Patient is standing in the hallway, not following directions/commands. Speech: Unable to assess Mood/Affect: Unable to assess Suicidality/Homicidality: Unable to assess Perceptions: Unable to assess Though content/process: Unable to assess Memory and concentration: Unable to assess Judgment and insight: poor IMPRESSIONS: Psychosis unspecified, rule out catatonia Alcohol abuse, currently in withdrawal Cannabis use disorder, by history Nicotine dependence Plan: -Patient continues to meet criteria for inpatient psychiatric admission for symptom stabilization and safety. Patient has not signed adult voluntary form and medication consent and was placed in patient's chart. -Medications: Continue paliperidone by mouth 9 mg daily at bedtime for psychosis. trazodone 50 mg daily at bedtime scheduled for insomnia/mood. d/c librium. -When necessary Ativan and Haldol for agitation/aggression. -thiamine, MVM for etoh use -CIWA protocol with Ativan PRN for ETOH withdrawal -NRT - nicotine patch -SW on board for discharge planning. Encouraged the patient to participate in milieu. court date set for April 05 at 1030am.
[2022-04-03] MEDS: traZODone HCL 50 MG TAB PO SCH (21:17)
[2022-04-03] MEDS: PALIPERIDONE 3 MG TAB.ER.24 PO SCH (21:17)
--- NOTE | 2022-04-04 07:25 | P.PN ---
Progress Note - Text Progress Note Date: 04/04/22 Interval History: Patient was seen in the hallways today then he returned back to his room. Jessica ent was laying in bed and was approached by underwriter and appeared to be sleeping. Patient was not repsondint to underwriter and did not awaken from sleep. According to nursing notes patient took several cereals and milks from the dining muller yesterday and refused to give them back.Security was called to assist. Patient did not receive any PRNs however did get agitated and was escorted back to his room. Notes and also observation of patient by underwriter is that he stands in the hallways and close to the main door, difficult to redirect and non verbal. well groomed appearance. Mental Status Exam: General Appearance: Patient appears to be franklin and longer hair, stated age is lethargic, Patient appears to have improving hygiene and grooming. Behavior: Patient is standing in the hallway, not following directions/commands. Speech: Unable to assess Mood/Affect: Unable to assess Suicidality/Homicidality: Unable to assess Perceptions: Unable to assess Though content/process: Unable to assess Memory and concentration: Unable to assess Judgment and insight: poor IMPRESSIONS: Psychosis unspecified vs. catatonia Alcohol abuse, currently in withdrawal Cannabis use disorder, by history Nicotine dependence Plan: -Patient continues to meet criteria for inpatient psychiatric admission for symptom stabilization and safety. Patient has not signed adult voluntary form and medication consent and was placed in patient's chart. -Medications: Continue paliperidone by mouth 9 mg daily at bedtime for psychosis. trazodone 50 mg daily at bedtime scheduled for insomnia/mood. will consider Ativan PO tomorrow if patient continues to not improve. -When necessary Ativan and Haldol for agitation/aggression. -thiamine, MVM for etoh use -CIWA protocol with Ativan PRN for ETOH withdrawal -NRT - nicotine patch -SW on board for discharge planning. Encouraged the patient to participate in milieu. court date set for April 05 at 1030am. will ask SW to call family or significant other to get collateral history and baseline.
[2022-04-04] MEDS: MULTIVITAMINS, THERA 1 EACH TAB PO SCH (11:54)
[2022-04-04] MEDS: NICOTINE 14MG/24HR PATCH TRANSDERM SCH (11:54)
[2022-04-04] MEDS: FOLIC ACID 1 MG TAB PO SCH (11:59)
[2022-04-04] MEDS: THIAMINE 100 MG TAB PO SCH (12:00)
[2022-04-04] MEDS: traZODone HCL 50 MG TAB PO SCH ×2 (20:10→21:59)
[2022-04-04] MEDS: PALIPERIDONE 3 MG TAB.ER.24 PO SCH ×2 (20:10→21:59)
[2022-04-05] MEDS: FOLIC ACID 1 MG TAB PO SCH (10:09)
[2022-04-05] MEDS: NICOTINE 14MG/24HR PATCH TRANSDERM SCH (10:09)
[2022-04-05] MEDS: MULTIVITAMINS, THERA 1 EACH TAB PO SCH (10:09)
[2022-04-05] MEDS: THIAMINE 100 MG TAB PO SCH (10:10)
--- NOTE | 2022-04-05 10:24 | P.PN ---
Progress Note - Text Progress Note Date: 04/05/22 Interval History: Patient was seen with his bag and belongings standing near the back door. Valeria andrews continues to appear to be well groomed. Patient did not take his medications last night. He greeted policy writer sales however had a constricted affect. He was very concrete and only answered some questions. He claims that he does not know why he is in the hospital. He knew that he was in "[facility]" however only knew that it was March 2022. He denies any anxiety or depression. He claims that he is "sleeping". He continues to act bizarrely. He was denying any suicidal or homicidal ideations intent or plan and denying any auditory or visual hallucinations. Mental Status Exam: General Appearance: Patient appears to be franklin and longer hair, stated age is lethargic, Patient appears to have improving hygiene and grooming Behavior: Patient is standing in the hallway, following only some directions. Speech: [place], fluent. Mood/Affect: Unable to assess Suicidality/Homicidality: Denies Perceptions: Denies. Though content/process: [place], guarded/evasive. Memory and concentration: Patient is alert and oriented to person place and time. Judgment and insight: poor IMPRESSIONS: Psychosis unspecified vs. catatonia Alcohol abuse, currently in withdrawal Cannabis use disorder, by history Nicotine dependence Plan: -Patient continues to meet criteria for inpatient psychiatric admission for symptom stabilization and safety. Patient has not signed adult voluntary form and medication consent and was placed in patient's chart. -Medications: Continue paliperidone by mouth 9 mg daily at bedtime for psychosis. trazodone 50 mg daily at bedtime scheduled for insomnia/mood. will consider Ativan PO if patient continues to not improve once patient is on a court order. -When necessary Ativan and Haldol for agitation/aggression. -thiamine, MVM for etoh use -NRT - nicotine patch -SW on board for discharge planning. Encouraged the patient to participate in milieu. court date set for April 05 at 1030am. will ask SW to call family or significant other to get collateral history and baseline.
[2022-04-05 14:34] VITALS: BMI 20.7
[2022-04-05] MEDS: PALIPERIDONE 3 MG TAB.ER.24 PO SCH (20:26)
[2022-04-05] MEDS: traZODone HCL 50 MG TAB PO SCH (20:26)
[2022-04-06] MEDS: THIAMINE 100 MG TAB PO SCH (09:05)
[2022-04-06] MEDS: FOLIC ACID 1 MG TAB PO SCH (09:05)
[2022-04-06] MEDS: NICOTINE 14MG/24HR PATCH TRANSDERM SCH (09:05)
[2022-04-06] MEDS: MULTIVITAMINS, THERA 1 EACH TAB PO SCH (09:05)
--- NOTE | 2022-04-06 13:41 | P.PN ---
Progress Note - Text Progress Note Date: 04/06/22 Interval History: Patient was seen with his bag and belongings sitting near the back phone. Valeria andrews was noted to be multiple times on the phone today and was not available to speak earlier. Patient was sitting and drinking a ensure. He has poor eye contact and looking at the ground and states that repeatedly "I have been talking to people today". He continues to perseverate on this and continues to act bizarrely. He was illogical and proceeded to walk away from data analyst report writer without answering further questions. Patient refused his medications yesterday. Mental Status Exam: General Appearance: Patient appears to be franklin and longer hair, stated age is lethargic, Patient appears to have improving hygiene and grooming Behavior: Patient is standing in the hallway, following only some directions. Speech: [place], fluent. Perseverating. Mood/Affect: Unable to assess Suicidality/Homicidality: Unable to assess Perceptions: Unable to assess Though content/process: [place], guarded/evasive. Memory and concentration: Able to assess Judgment and insight: poor IMPRESSIONS: Psychosis unspecified vs. catatonia Alcohol abuse, currently in withdrawal Cannabis use disorder, by history Nicotine dependence Plan: -Patient continues to meet criteria for inpatient psychiatric admission for symptom stabilization and safety. Patient has not signed adult voluntary form and medication consent and was placed in patient's chart. -Medications: Discontinue paliperidone and replaced with Prolixin 5 mg twice a day by mouth for psychosis, if patient refuses then he will receive 5 mg IM of Prolixin. trazodone 50 mg daily at bedtime scheduled for insomnia/mood. will consider Ativan PO if patient continues to not improve -When necessary Ativan and Haldol for agitation/aggression. -thiamine, MVM for etoh use -NRT - nicotine patch -SW on board for discharge planning. Encouraged the patient to participate in milieu. patient is now on an ACE. will ask SW to call family or significant other to get collateral history and baseline.
[2022-04-06] MEDS: traZODone HCL 50 MG TAB PO SCH ×2 (21:34→21:57)
[2022-04-06] MEDS: flUPHENAZine 2.5 MG/ML (MDV) 10 ML VIAL IM PRN (22:03)
[2022-04-07] MEDS: MULTIVITAMINS, THERA 1 EACH TAB PO SCH (09:24)
[2022-04-07] MEDS: FOLIC ACID 1 MG TAB PO SCH (09:24)
[2022-04-07] MEDS: NICOTINE 14MG/24HR PATCH TRANSDERM SCH (09:24)
[2022-04-07] MEDS: THIAMINE 100 MG TAB PO SCH (09:24)
--- NOTE | 2022-04-07 13:51 | P.PN ---
Progress Note - Text Progress Note Date: 04/07/22 Interval History: Patient was seen today sitting in the dining muller after eating lunch. Patient was sipping coffee at a table alone. Paleology Teacher approached the patient as the lunch was wrapping up and patient refused to get up. He continues to mumble at times and was difficult to redirect. He claims that he did not want to speak to fha underwriter today. Patient is currently on a court order. He was started on Prolixin yesterday, patient refused oral elixir and yesterday and receive the IM shot and took the pill this morning. Mental Status Exam: General Appearance: Patient appears to be franklin and longer hair, stated age is alert, Patient appears to have improving hygiene and grooming Behavior: Patient is standing in the dining muller, following only some directions. Argumentative and not wanting to speak to fha underwriter. Speech: [place], Perseverating. Soft tone. Mumbling. Mood/Affect: Unable to assess Suicidality/Homicidality: Unable to assess Perceptions: Unable to assess Though content/process: [place], guarded/evasive. Memory and concentration: Able to assess Judgment and insight: poor IMPRESSIONS: Psychosis unspecified vs. catatonia Alcohol abuse, currently in withdrawal Cannabis use disorder, by history Nicotine dependence Plan: -Patient continues to meet criteria for inpatient psychiatric admission for symptom stabilization and safety. Patient has not signed adult voluntary form and medication consent and was placed in patient's chart. -Medications: Continue Prolixin 5 mg twice a day by mouth for psychosis, if patient refuses then he will receive 5 mg IM of Prolixin. Discontinued increased over the weekend if needed. trazodone 50 mg daily at bedtime scheduled for insomnia/mood. -When necessary Ativan and Haldol for agitation/aggression. -thiamine, MVM for etoh use -NRT - nicotine patch -SW on board for discharge planning. Encouraged the patient to participate in milieu. patient is now on an ACE. will continue to work with pts medications and will need to transition patient onto MOLINA to ensure complaince.
[2022-04-07] MEDS: traZODone HCL 50 MG TAB PO SCH (20:53)
[2022-04-08] MEDS: MULTIVITAMINS, THERA 1 EACH TAB PO SCH (09:07)
[2022-04-08] MEDS: NICOTINE 14MG/24HR PATCH TRANSDERM SCH (09:07)
[2022-04-08] MEDS: FOLIC ACID 1 MG TAB PO SCH (09:07)
[2022-04-08] MEDS: THIAMINE 100 MG TAB PO SCH (09:07)
--- NOTE | 2022-04-08 19:21 | P.PN ---
Progress Note - Text Progress Note Date: 04/08/22 Interval history: Patient was seen in the [facility] with his Bible and TV on, and appears to be attending to internal stimuli. He is calm and agreeable to speak with this parts data writer however his responses are irrelevant and nonsensical. He takes out a grocery store ad from his Bible and begins to mumble incoherently. At this time, patient denies any suicidal or homicidal ideation, intent or plan. Denies any auditory or visual hallucinations when asked but appears overtly psychotic and attending to internal stimuli. Patient denies any side effects from the medications and has been compliant with meds. Mental status exam: General Appearance: Patient appears to be stated age, poor hygiene/grooming. Behavior: No agitated behavior. Patient is calm and directable. Speech: Patient's speech is mumbled and incoherent. Mood/Affect: Mood is improving mildly, affect is congruent and blunted. Suicidality/Homicidality: Patient denies having any suicidal or homicidal ideation intent or plan. Perceptions: Patient denies any auditory or visual hallucinations, but is overtly psychotic and attending to internal stimuli. Though content/process: Thought content is irrelevant to question asked, points to grocery store ad and mumbles incoherently. Memory and concentration: AOX1, unable to assess time and place due to severity of psychosis. Judgment and insight: improving mildly Assessment/Plan: Continue with current diagnosis. [facility] and [facility]. Increase Prolixin to 10 mg po BID for psychosis. Monitor for medication compliance and for any psychotropic medication side effects. Will continue to monitor ongoing response to treatment. Encouraged participation in milieu.
[2022-04-08] MEDS: traZODone HCL 50 MG TAB PO SCH (20:42)
[2022-04-09] MEDS: MULTIVITAMINS, THERA 1 EACH TAB PO SCH (07:59)
[2022-04-09] MEDS: THIAMINE 100 MG TAB PO SCH (07:59)
[2022-04-09] MEDS: NICOTINE 14MG/24HR PATCH TRANSDERM SCH (08:00)
[2022-04-09] MEDS: FOLIC ACID 1 MG TAB PO SCH (08:00)
--- NOTE | 2022-04-09 15:31 | P.PN ---
Progress Note - Text Progress Note Date: 04/09/22 Interval history: Patient was seen in his room sitting on the bed and reading the book "Ch[employer]". He is calm and agreeable to speak with this designer/writer however he appears withdrawn, isolative and passively engaged in assessment. His thoughts are becoming more organized and coherent since increasing the Prolixin to 10 mg BID starting last night. At this time, patient denies any suicidal or homicidal ideation, intent or plan, and reports frustration about being asked his again today. Denies any auditory or visual hallucinations when asked but appears to still be attending to internal stimuli but less than yesterday. Patient denies any side effects from the medications and has been compliant with meds. No tremors or EPS observed or reported. Mental status exam: General Appearance: Patient appears to be stated age, hygiene/grooming improved today. Behavior: No agitated behavior. Patient appears withdrawn and isolative. Speech: Patient's speech is mumbled with soft tone but improved. Mood/Affect: Mood is improving mildly, affect is congruent and blunted. Suicidality/Homicidality: Patient denies having any suicidal or homicidal ideation intent or plan. Perceptions: Patient denies any auditory or visual hallucinations, but appears to be attending to internal stimuli but less than yesterday. Though content/process: Thought content is irrelevant to question asked, points to grocery store ad and mumbles incoherently. Memory and concentration: AOX3 Judgment and insight: improving mildly Assessment/Plan: Continue with current diagnosis. Patient continues to meet criteria for inpatient psychiatric admission for symptom stabilization and safety. Continue Prolixin 10 mg po BID for psychosis, with plan to gradually increase as tolerated. Monitor for medication compliance and for any psychotropic medication side effects. Will continue to monitor ongoing response to treatment. Encouraged participation in milieu.
[2022-04-09] MEDS: traZODone HCL 50 MG TAB PO SCH (21:33)
[2022-04-09] MEDS: ACETAMINOPHEN TAB 325 MG TAB PO PRN (21:33)
[2022-04-10] MEDS: FOLIC ACID 1 MG TAB PO SCH (08:55)
[2022-04-10] MEDS: MULTIVITAMINS, THERA 1 EACH TAB PO SCH (08:55)
[2022-04-10] MEDS: NICOTINE 14MG/24HR PATCH TRANSDERM SCH (08:55)
[2022-04-10] MEDS: THIAMINE 100 MG TAB PO SCH (08:56)
--- NOTE | 2022-04-10 10:41 | P.PN ---
Progress Note - Text Progress Note Date: 04/10/22 Interval History: Patient was seen today sitting on the side of his bed and was agreeable to speak to verse writer. Patient was looking through a book today. He appears to have fair hygiene and grooming. He answered most questions appropriately however was soft in his tone of speech today. He denies any complaints over the weekends and states that he is eating well. He listed off the different items that he had this morning for breakfast. He has not been going to many groups. He was asking about discharge today. Denying any depression or anxiety or any side effects from the medications. He states that he is sleeping fairly at nighttime. She has fairly limited insight into his condition and need for treatment. Patient is currently on a court order. He has been taking his Prolixin by mouth over the weekend and it was increased to 10 mg twice a day. Patient will receive Prolixin D 50 mg IM injection today. He is denying any auditory or visual hallucinations. Denying any suicidal or homicidal ideations intent or plan. Mental Status Exam: General Appearance: Patient appears to be franklin and longer hair, stated age is alert, Patient appears to have improving hygiene and grooming Behavior: Patient is sittin on his bed, following only some directions. Speech: [place], Soft tone. Mumbling. Mood/Affect: Claimed that his mood is "fine" and affect is constricted. Suicidality/Homicidality: Denies Perceptions: Denies and is not responding to internal stimuli. Though content/process: [place], guarded/evasive. poverty of content. Memory and concentration: Alert and oriented 3, fair attention span. Judgment and insight: chronically limited. IMPRESSIONS: Psychosis unspecified vs. catatonia Alcohol abuse, currently in withdrawal Cannabis use disorder, by history Nicotine dependence Plan: -Patient continues to meet criteria for inpatient psychiatric admission for s ymptom stabilization and safety. Patient has not signed adult voluntary form and medication consent and was placed in patient's chart. -Medications: decrease Prolixin 7.5 mg twice a day by mouth for psychosis, if patient refuses then he will receive IM of Prolixin as per court order. Ordered Prolixin D 50 mg IM today with plan for next dose in 2 weeks on 04/24. trazodone 50 mg daily at bedtime scheduled for insomnia/mood. -When necessary Ativan and Haldol for agitation/aggression. -thiamine, MVM for etoh use -NRT - nicotine patch -SW on board for discharge planning. Encouraged the patient to participate in milieu. patient is now on an ACE. will give MOLINA today to ensure complaince. likely discharge tomorrow back home.
[2022-04-10] MEDS ORDERED: fluPHENAZine DECANOATE 25 MG/ML 5ML MDV IM ONE (10:45)
[2022-04-10] MEDS: traZODone HCL 50 MG TAB PO SCH ×2 (21:26→22:09)
[2022-04-10] MEDS: ACETAMINOPHEN TAB 325 MG TAB PO PRN (21:37)
[2022-04-11] MEDS: FOLIC ACID 1 MG TAB PO SCH (10:01)
[2022-04-11] MEDS: MULTIVITAMINS, THERA 1 EACH TAB PO SCH (10:01)
[2022-04-11] MEDS: THIAMINE 100 MG TAB PO SCH (10:01)
[2022-04-11] MEDS: NICOTINE 14MG/24HR PATCH TRANSDERM SCH (10:01)
[2022-04-11] MEDS: flUPHENAZine 2.5 MG/ML (MDV) 10 ML VIAL IM PRN (10:08)
[2022-04-11] MEDS ORDERED: LORazepam 2 MG/ML INJ IM PRN (11:12)
[2022-04-11] MEDS: LORazepam 1 MG TAB PO SCH ×3 (11:20→20:10)
--- NOTE | 2022-04-11 11:22 | P.PN ---
Progress Note - Text Progress Note Date: 04/11/22 Interval History: Patient was seen today sitting in the hallway with his belongings. Patient ap parently refused his Prolixin pills this morning and required IM. Patient did receive Prolixin D 50 mg IM yesterday and tolerated it well. Patient was approached by justowriter operator however patient got up from a seated position with his belongings wandered the hallways back to his room and did not want to speak with justowriter operator. He went to his room. His belongings in his drawer attached to his bed and proceeded to walk towards the window and was staring outside. Cna Hha did not answer any questions or follow any commands. Mental Status Exam: General Appearance: Patient appears to be franklin and longer hair, stated age is alert, Patient appears to have improving hygiene and grooming Behavior: Patient was wandering the hallways carrying his belongings in a bag and went to his room and face the window. Did not engage with justowriter operator. Speech: non-verbal today. Mood/Affect: Unable to assess Suicidality/Homicidality: Unable to assess Perceptions: Unable to assess Though content/process: Unable to assess Memory and concentration: Unable to assess Judgment and insight: chronically limited. IMPRESSIONS: Psychosis unspecified vs. catatonia? Alcohol abuse, currently in withdrawal Cannabis use disorder, by history Nicotine dependence Plan: -Patient continues to meet criteria for inpatient psychiatric admission for symptom stabilization and safety. Patient has not signed adult voluntary form and medication consent and was placed in patient's chart. -Medications: decrease Prolixin 6 mg twice a day by mouth for psychosis, patient received Prolixin D 50 mg IM on nd will be due for next dose in 1 week, if patient refuses then he will receive IM of Prolixin as per court order. trazodone 50 mg daily at bedtime scheduled for insomnia/mood. added Ativan 1 mg tid scheduled for catatonia sx and if patient refuses will give IM. -When necessary Ativan and Haldol for agitation/aggression. -thiamine, MVM for etoh use -NRT - nicotine patch -SW on board for discharge planning. Encouraged the patient to participate in milieu. patient is now on an ACE. patient received MOLINA on 04/10. likely discharge once patient improves psychiatrically.
[2022-04-11] MEDS: traZODone HCL 50 MG TAB PO SCH (20:10)
[2022-04-12] MEDS: NICOTINE 14MG/24HR PATCH TRANSDERM SCH (09:36)
--- NOTE | 2022-04-12 09:38 | P.PN ---
Progress Note - Text Progress Note Date: 04/12/22 Interval History: Patient was seen today laying in the bed and was agreeable to speak to program writer today. Patient answered questions appropriately today. He continues to be fairly concrete and have limited insight. He was alert and oriented 3 today a new the correct date as well. He denies any anxiety or depression at this time. He did appear to be somewhat constricted in his affect. He asked why he didn't get discharged yesterday and program writer explained that he was not taking his medications and not doing well. He is agreeable to take his morning medications today once he is given them. He was not focused on discharge today. He was following more commands today and more appropriate. The patient is denying any auditory or visual hallucinations. He is denying any suicidal or homicidal ideations intent or plan. Mental Status Exam: General Appearance: Patient appears to be fraknlin and longer hair, stated age is alert, Patient appears to have improving hygiene and grooming Behavior: Patient was laying in bed today, more agreeable to converse with program writer. Following some directions. Speech: [place], fluent, monotone. Mood/Affect: He is denying any depression or anxiety today, affect is constricted. Suicidality/Homicidality: Denies Perceptions: Denies Though content/process: [place], poverty of content. Denying any paranoia or delusions. Memory and concentration: Alert and oriented 3, following some commands today. Improving attention span. Judgment and insight: chronically limited, proving mildly. IMPRESSIONS: Psychosis unspecified vs. catatonia? Alcohol abuse, currently in withdrawal Cannabis use disorder, by history Nicotine dependence Plan: -Patient continues to meet criteria for inpatient psychiatric admission for symptom stabilization and safety. Patient has not signed adult voluntary form and medication consent and was placed in patient's chart. -Medications: decrease Prolixin 4 mg twice a day by mouth for psychosis, patient received Prolixin D 50 mg IM on 04/10, if patient refuses then he will receive IM of Prolixin as per court order. trazodone 50 mg daily at bedtime scheduled for insomnia/mood. continue Ativan 1 mg tid scheduled for catatonia sx and if patient refuses will give IM. -When necessary Ativan and Haldol for agitation/aggression. -thiamine, MVM for etoh use -NRT - nicotine patch -SW on board for discharge planning. Encouraged the patient to participate in milieu. patient is now on an ACE. patient received MOLINA on 04/10. patient is improving mildly and likely discharge tomorrow vs sunday if patient continues to improve.
[2022-04-12] MEDS: LORazepam 1 MG TAB PO SCH ×3 (10:02→21:12)
[2022-04-12] MEDS: THIAMINE 100 MG TAB PO SCH (10:02)
[2022-04-12] MEDS: MULTIVITAMINS, THERA 1 EACH TAB PO SCH (10:02)
[2022-04-12] MEDS: FOLIC ACID 1 MG TAB PO SCH (10:07)
[2022-04-12] MEDS: traZODone HCL 50 MG TAB PO SCH (21:12)
[2022-04-13 06:44] VITALS: BP 128/76; PULSE 60; RESP 14; TEMP 97.3
[2022-04-13] MEDS: FOLIC ACID 1 MG TAB PO SCH (08:39)
[2022-04-13] MEDS: NICOTINE 14MG/24HR PATCH TRANSDERM SCH (08:40)
[2022-04-13] MEDS: MULTIVITAMINS, THERA 1 EACH TAB PO SCH (08:41)
[2022-04-13] MEDS: LORazepam 1 MG TAB PO SCH (08:41)
[2022-04-13] MEDS: THIAMINE 100 MG TAB PO SCH (08:41)
--- NOTE | 2022-04-13 11:21 | P.DS ---
Providers Date of admission: 03/29/22 02:57 Expected date of discharge: 04/13/22 Attending physician: Mateus Caldwell MD Consults: 03/29/22 03:08 Consult Physician Routine Consulting Provider: José Miguel Vallejo Consult Reason/Comments: For H & P for Medical Follow Up Do you want consulting provider notified?: Yes, Notify in am Primary care physician: Stated None - Discharge Diagnosis(es) (1) Unspecified psychosis Current Visit: Yes Status: Acute Priority: High (2) Catatonia Current Visit: Yes Status: Acute Priority: High (3) Alcohol abuse Current Visit: Yes Status: Acute Priority: Medium (4) Cannabis use disorder Current Visit: Yes Status: Acute Priority: Medium (5) Nicotine dependence Current Visit: Yes Status: Acute Priority: Low Hospital Course: Admission HPI: Admission note was completed by card writer hand "Patient is a 57-year-old male with a history of schizophrenia and alcohol abuse who presented to ER by police with petition by patient's relative. Patient presented to the hospital yesterday for evaluation and the ER. According to ER report patient has a history of schizophrenia and alcohol abuse and had a blood alcohol level of 59. Patients girlfriend apparently had stated to police that patient stopped taking his medications "a while ago" and has been acting more bizarre and apparently walking around with a knife yelling at his neighbors and also rifling through their mailbox. Apparently patient has also been acting bizarre and crawling on the floor. According to petition written by patient's relative states that patient is "erratic behavior, agitated, catatonic. Adalberto has not refilled his meds since May. Brian today on 03/28/22 was crawling on the grounds during breaks and flower pots etc. avoiding eye contact and offering no verbal communication". The petition also states that "Brian has been talking to himself on the sidewalk while swinging around a knife. Brian was also looking in his neighbors mailbox." Patient apparently has a history of alcohol abuse and according TPS report has had a history of significant alcohol withdrawal. Patient was admitted involuntarily to the mental health unit. Patient was seen laying in bed this morning and appeared to be responding to internal stimuli. He had very poor attention span and was looking at the ceiling. He only responded to some questions and for the most part was mumbling and difficult to comprehend. Disorganized speech and thought process. He spoke about coming from "[facility]". She continues to perseverate on "being brought here by the ambulance". He was inappropriate in some of his answers and fairly bizarre and illogical. He is denying any depression or anxiety. He spoke about smoking a "cigar" before coming into the hospital. He appears to have poor reality testing, poor insight and judgment. He appeared to be disheveled in appearance and did not want to speak about medications. He was alert and oriented to person and place only. Patient denies any current suicidal or homicidal ideations intent or plan. At this time patient denies any auditory or visual hallucinations however is responding to internal stimuli. Patient denies any flight of ideas racing thoughts and increased in goal directed behavior. Patient admits to using alcohol cigarettes and marijuana and his UDS was negative on admission." Hospital course: Upon admission to the unit patient was admitted involuntarily on a petition and certificate and a second certificate was completed and faxed with the courts. Patient ended up receiving a alternative treatment order for medications and follow-up. Patient was initially bizarre and psychotic on the unit however with treatment improved. Patient also developed likely signs of catatonia including mutism and exhibiting bizarre gestures and poses, not following directions or commands. With treatment patient eventually improved and attended some groups and followed unit protocol. Patient was initially non compliant with medications and needed a treatment order to comply with meds and he denied any side effects throughout hospital course. Patient was started on Prolixin PO and incresed to a total dose of 10 mg bid for psychosis. Patient was transitioned onto Prolixin D 50 mg IM given on 04/10 and next dose will be due in [id number] on 04/20 to ensure compliance. Patient was also started on Ativan 1 mg tid for catatonia which improved his symptoms. Patient spoke of his stressors and engaged in therapy both group and individual. Patient was also seen by medical team for history and physical exam. Throughout the course of the hospitalization patient gradually improved with regards to mood, anxiety, psychosis and catatonia like sx. Patients sleep and behaviors also improved and returned back to their baseline level of functioning. On the day of discharge patient denied any suicidal or homicidal ideations intent or plan denied any auditory or visual hallucinations. Patient endorsed wanting to live for his health and to go home. The patient denied any access to guns or weapons. Patient denied any paranoia and did not endorse any delusions. Patient does have a significant history of substance abuse and was counseled on abstaining from all substances including alcohol and marijuana. Patient was offered however declined inpatient substance-abuse rehab. Patient was also counseled on the medications and need for regular compliance and was encouraged to follow-up with their outpatient appointment for mental health and also for primary care. Prior to discharge a family meeting will be arranged by social science manager to answer any questions and ensure safety upon discharge. Engineering Intern also spoke with patient about the danger of drinking etoh with ativan and patient aknowledged and agreed. Patient will only be given 2 days of ativan as a taper for catatonia. Mental status exam: General Appearance: Patient appears to be thin, longer hair, franklin, stated age is alert, directable, and cooperative. Patient is in no acute distress and has improved hygiene and grooming Behavior: Patient is calmly seated without any agitated behavior. Speech: Patient's speech is fluent and nonpressured. monotone Mood/Affect: Patient reports their mood is "ok", affect is congruent and constricted Suicidality/Homicidality: Patient denies having any suicidal or homicidal ideation intent or plan. Perceptions: Patient denies any auditory or visual hallucinations. Though content/process: There is no evidence of any delusional thought content and thought process is linear and goal-directed. concrete. Memory and concentration: AOX3, grossly intact for the purposes of this session. Can spell "WORLD" backwards correctly. Judgment and insight: chronically poor, however has improved with guarded prognosis Impression: Psychosis unspecified Catatonia Alcohol abuse. Cannabis use disorder Nicotine dependence Plan: -Continue with discharge today as patient has improved and stabilized psychiatrically and is not currently an imminent threat to himself and/or others. Patient will remain at chronically elevated risk for harm to self and/or others due to his mental health condition. -Continue medications: Patient was transitioned onto Prolixin D 50 mg IM given on 04/10 and next dose will be due in [id number] on 04/20 to ensure compliance. Continue PO prolixin for 3 more days at 5 mg bid then d/c. Ativan will be given as a taper for 2 more days then d/c for catatonia sx. -Patient was counseled on the need for medication compliance and appropriate follow-up at mental health and also primary care for medical issues. Patient verbalized understanding and agreed. -Social work to arrange for and conduct family meeting to ensure safety upon discharge and answer any questions/concerns. Social work also to arrange for patients follow up appointments with [facility] for psychiatric care along with follow up with primary care provider. -Patient counseled on abstaining from recreational drugs and marijuana and alcohol. Was informed/educated on the adverse effects on their physical and mental health. Patient verbally agreed and understood. Patient was offered substance abuse treatment however declined at this time. -Patient was instructed to return to the hospital or seek immediate medical care if their psychiatric or medical symptoms do worsen or reoccur. Allergies Allergy/AdvReac Type Severity Reaction Status Date / Time cephalexin [From Keflex] Allergy Intermediate Rash/Hives Verified 03/29/22 04:08 Laboratory Results WBC 15.8 k/uL (3.8-10.6) H 03/28/22 18:06 RBC 4.67 m/uL (4.30-5.90) 03/28/22 18:06 Hgb 15.2 gm/dL (13.0-17.5) 03/28/22 18:06 Hct 41.8 % (39.0-53.0) 03/28/22 18:06 MCV 89.6 fL (80.0-100.0) 03/28/22 18:06 MCH 32.5 pg (25.0-35.0) 03/28/22 18:06 MCHC 36.3 g/dL (31.0-37.0) 03/28/22 18:06 RDW 13.5 % (11.5-15.5) 03/28/22 18:06 Plt Count 526 k/uL (150-450) H 03/28/22 18:06 MPV 7.7 03/28/22 18:06 Neutrophils % 86 % 03/28/22 18:06 Lymphocytes % 7 % 03/28/22 18:06 Monocytes % 5 % 03/28/22 18:06 Eosinophils % 1 % 03/28/22 18:06 Basophils % 0 % 03/28/22 18:06 Neutrophils # 13.6 k/uL (1.3-7.7) H 03/28/22 18:06 Lymphocytes # 1.1 k/uL (1.0-4.8) 03/28/22 18:06 Monocytes # 0.7 k/uL (0-1.0) 03/28/22 18:06 Eosinophils # 0.2 k/uL (0-0.7) 03/28/22 18:06 Basophils # 0.1 k/uL (0-0.2) 03/28/22 18:06 Sodium 141 mmol/L (137-145) 03/28/22 18:06 Potassium 4.3 mmol/L (3.5-5.1) 03/28/22 18:06 Chloride 107 mmol/L (98-107) 03/28/22 18:06 Carbon Dioxide 19 mmol/L (22-30) L 03/28/22 18:06 Anion Gap 15 mmol/L 03/28/22 18:06 BUN 20 mg/dL (9-20) 03/28/22 18:06 Creatinine 1.01 mg/dL (0.66-1.25) 03/28/22 18:06 Est GFR (CKD-EPI)AfAm >90 (>60 ml/min/1.73 sqM) 03/28/22 18:06 Est GFR (CKD-EPI)NonAf 83 (>60 ml/min/1.73 sqM) 03/28/22 18:06 Glucose 130 mg/dL (74-99) H 03/28/22 18:[address] Glu mg/dL 103 03/29/22 07:14 Hemoglobin A1c 5.2 % (0.0-6.0) 03/29/22 07:14 Calcium 10.3 mg/dL (8.4-10.2) H 03/28/22 18:06 Total Bilirubin 0.6 mg/dL (0.2-1.3) 03/29/22 07:14 Conjugated Bilirubin 0.0 mg/dL (0.0-0.3) 03/29/22 07:14 Unconjugated Bilirubin 0.3 mg/dL (0.0-1.1) 03/29/22 07:14 Delta Bilirubin 0.3 mg/dL (0.0-0.2) H 03/29/22 07:14 AST 41 U/L (17-59) 03/29/22 07:14 ALT 31 U/L (4-49) 03/29/22 07:14 Alkaline Phosphatase 70 U/L (38-126) 03/29/22 07:14 Total Protein 6.9 g/dL (6.3-8.2) 03/29/22 07:14 Albumin 4.4 g/dL (3.5-5.0) 03/29/22 07:14 Triglycerides 67.80 mg/dL (0.00-149.00) 03/29/22 07:14 Cholesterol 194.00 mg/dL (0.00-200.00) 03/29/22 07:14 LDL Cholesterol, Calc 115.2 mg/dL (0.0-131.0) 03/29/22 07:14 VLDL Cholesterol, Calc 13.56 mg/dL (5.00-40.00) 03/29/22 07:14 HDL Cholesterol 65.20 mg/dL (40.00-60.00) H 03/29/22 07:14 Cholesterol/HDL Ratio 2.98 Ratio 03/29/22 07:14 TSH 1.950 mIU/L (0.465-4.680) 03/29/22 07:14 Urine Color Yellow 03/28/22 19:35 Urine Appearance Cloudy (Clear) 03/28/22 19:35 Urine pH 6.5 (5.0-8.0) 03/28/22 19:35 Ur Specific [place] 1.025 (1.001-1.035) 03/28/22 19:35 Urine Protein 1+ (Negative) H 03/28/22 19:35 Urine Glucose (UA) Negative (Negative) 03/28/22 19:35 Urine Ketones Trace (Negative) H 03/28/22 19:35 Urine Blood Negative (Negative) 03/28/22 19:35 Urine Nitrite Negative (Negative) 03/28/22 19:35 Urine Bilirubin Negative (Negative) 03/28/22 19:35 Urine Urobilinogen 3.0 mg/dL (<2.0) 03/28/22 19:35 Ur Leukocyte Esterase Negative (Negative) 03/28/22 19:35 Urine RBC 4 /hpf (0-5) 03/28/22 19:35 Urine WBC 8 /hpf (0-5) H 03/28/22 19:35 Ur Squamous Epith Cells <1 /hpf (0-4) 03/28/22 19:35 Calcium Oxalate Crystal Moderate /hpf (None) H 03/28/22 19:35 Urine Bacteria Occasional /hpf (None) H 03/28/22 19:35 Urine Mucus Occasional /hpf (None) H 03/28/22 19:35 Urine Opiates Screen Not Detected (NotDetected) 03/28/22 19:35 Ur Oxycodone Screen Not Detected (NotDetected) 03/28/22 19:35 Urine Methadone Screen Not Detected (NotDetected) 03/28/22 19:35 Ur Propoxyphene Screen Not Detected (NotDetected) 03/28/22 19:35 Ur Barbiturates Screen Not Detected (NotDetected) 03/28/22 19:35 U Tricyclic Antidepress Not Detected (NotDetected) 03/28/22 19:35 Ur Phencyclidine Scrn Not Detected (NotDetected) 03/28/22 19:35 Ur Amphetamines Screen Not Detected (NotDetected) 03/28/22 19:35 U Methamphetamines Scrn Not Detected (NotDetected) 03/28/22 19:35 U Benzodiazepines Scrn Not Detected (NotDetected) 03/28/22 19:35 Urine Cocaine Screen Not Detected (NotDetected) 03/28/22 19:35 U Marijuana (THC) Screen Not Detected (NotDetected) 03/28/22 19:35 Serum Alcohol 59 mg/dL 03/28/22 18:06 Coronavirus (PCR) Not Detected (Not Detectd) 04/12/22 14:50 Vital Signs Temp 97.3 F L 04/13/22 06:44 Pulse 60 04/13/22 06:44 Resp 14 04/13/22 06:44 BP 128/76 04/13/22 06:44 Pulse Ox 99 04/12/22 10:01 FiO2 Patient Condition at Discharge: Stable Plan - Discharge Summary New Discharge Prescriptions: New traZODone HCL [Desyrel] 50 mg PO HS 30 Days tab Nicotine 14Mg/24Hr Patch [Habitrol] 1 patch TRANSDERM DAILY 14 Days patch Multivitamins, Thera [Multivitamin (formulary)] 1 each PO DAILY 30 Days tab fluPHENAZine decanoate [Prolixin Decanoate] 50 mg IM Q10D #1 each Acetaminophen Tab [Tylenol] 650 mg PO Q4HR PRN tab PRN Reason: Pain/Discomfort LORazepam [Ativan] 1 mg PO BID 2 Days tab Folic Acid 1 mg PO DAILY 30 Days tab fluPHENAZine [Prolixin] 5 mg PO BID 3 Days tab Thiamine [Vitamin B-1] 100 mg PO DAILY 30 Days tab Discontinued risperiDONE 2 mg PO DIRECTED Lovastatin [Mevacor] 20 mg PO DAILY Terbinafine [LamISIL] 250 mg PO DAILY Discharge Medication List Acetaminophen Tab [Tylenol] 650 mg PO Q4HR PRN tab 04/13/22 [Rx] Folic Acid 1 mg PO DAILY 30 Days tab 04/13/22 [Rx] LORazepam [Ativan] 1 mg PO BID 2 Days tab 04/13/22 [Rx] Multivitamins, Thera [Multivitamin (formulary)] 1 each PO DAILY 30 Days tab [Rx] Nicotine 14Mg/24Hr Patch [Habitrol] 1 patch TRANSDERM DAILY 14 Days patch 04/13/22 [Rx] Thiamine [Vitamin B-1] 100 mg PO DAILY 30 Days tab 04/13/22 [Rx] fluPHENAZine [Prolixin] 5 mg PO BID 3 Days tab 04/13/22 [Rx] fluPHENAZine decanoate [Prolixin Decanoate] 50 mg IM Q10D #1 each 04/13/22 [Rx] traZODone HCL [Desyrel] 50 mg PO HS 30 Days tab 04/13/22 [Rx] Follow up Appointment(s)/Referral(s): CAMERON Maddox [Other] - 04/17/22 1:00 [facility] - 1 Week Patient Instructions/Handouts: How to Stop Smoking (DC), Abuse of Alcohol (ED), Psychotic Disorder (DC) Activity/Diet/Wound Care/Special Instructions: Avoid the use of street drugs and alcohol. Take all prescriptions as prescribed. When you are in need of refills on your medications, please contact your medical provider and/or outpatient psychiatrist to have this done. Please go to scheduled outpatient appointment for aftercare treatment. If symptoms return or become worse, call the crisis line at and/or go to the nearest emergency room for evaluation. Discharge Disposition: HOME SELF-CARE
== END 2022-04-13 14:23 | disposition home or self-care (01) | DRG 885 ==
LOC: EC 17:42 → 3MHU 03-29 02:57
PROVIDERS: ADMIT Psychiatry & Neurology Psychiatry; ATTEND Psychiatry & Neurology Psychiatry
DX: F23 Brief psychotic disorder (principal); F10.139 Alcohol abuse with withdrawal, unspecified; F20.2 Catatonic schizophrenia; F12.129 Cannabis abuse with intoxication, unspecified; F32.A Depression, unspecified; Z20.822 Contact with and (suspected) exposure to COVID-19; Y90.2 Blood alcohol level of 40-59 mg/100 ml; Z91.83 Wandering in diseases classified elsewhere; T50.906A Underdosing of unspecified drugs, medicaments and biological substances, initial encounter; Z91.128 Patient's intentional underdosing of medication regimen for other reason; G47.00 Insomnia, unspecified; F17.210 Nicotine dependence, cigarettes, uncomplicated; Z71.6 Tobacco abuse counseling; Z79.899 Other long term (current) drug therapy; Z71.41 Alcohol abuse counseling and surveillance of alcoholic; Z71.51 Drug abuse counseling and surveillance of drug abuser; Z71.3 Dietary counseling and surveillance; Z88.1 Allergy status to other antibiotic agents
CPT/HCPCS: 36415; 71045; 80053; 80061; 80076; 80306; 80320; 81001; 82075; 83036; 84443; 85025; 87635; 93005; 99285

== ENCOUNTER 2023-07-26 11:33 | Emergency (ER) | payer MEDICARE ==
[2023-07-26 12:07] VITALS: PULSE 68; TEMP 99.2
--- NOTE | 2023-07-26 12:20 | ED ---
General Adult HPI - General Chief complaint: Dizziness Stated complaint: Weakness Time Seen by Provider: 07/26/23 11:42 Source: patient Mode of arrival: ambulatory Limitations: no limitations - History of Present Illness Initial comments: Dictation was produced using [employer] dictation software. please excuse any grammatical, word or spelling errors. Chief Complaint: 58-year-old male presents to the ER for chronic gait difficulties History of Present Illness: Patient 58-year-old male he is accompanied by his brother. Patient has been having chronic gait difficulties. Contacted his primary care doctor's told that he should probably be seen in the emergency department first. His primary care doctor is Dr. Cortes. He did not specify who exactly he spoke with. He understood however that he should come here to rule out any serious issues. Patient denies any issues at this time. Denies any headache. No numbness tingling paresthesias. Denies any focal weakness The ROS documented in this emergency department record has been reviewed and confirmed by me. Those systems with pertinent positive or negative responses have been documented in the HPI. All other systems are other negative and/or noncontributory. - Related Data Home Medications Medication Instructions Recorded Confirmed Lovastatin [Mevacor] 20 mg PO DAILY PRN 07/26/23 07/26/23 fluPHENAZine decanoate [Prolixin 50 mg IM Q14D 07/26/23 07/26/23 Decanoate] Previous Rx's Medication Instructions Recorded traZODone HCL [Desyrel] 50 mg PO HS 30 Days tab 04/13/22 Allergies Allergy/AdvReac Type Severity Reaction Status Date / Time cephalexin [From Keflex] Allergy Intermediate Rash/Hives Verified 07/26/23 12:27 Review of Systems ROS Statement: Those systems with pertinent positive or pertinent negative responses have been documented in the HPI. ROS Other: All systems not noted in ROS Statement are negative. Past Medical History Past Medical History: No Reported History History of Any Multi-Drug Resistant Organisms: Unobtainable Past Surgical History: Unable to Obtain Additional Past Surgical History / Comment(s): spleenectomy Past Psychological History: Schizophrenia Smoking Status: Current every day smoker, Unknown if ever smoked General Exam - General Exam Comments Initial Comments: PHYSICAL EXAM: General Impression: Alert and oriented x3, not in acute distress HEENT: Normocephalic atraumatic, extra-ocular movements intact, pupils equal and reactive to light bilaterally, mucous membranes moist. Cardiovascular: Heart regular rate and rhythm Chest: Able to complete full sentences, no retractions, no tachypnea Abdomen: abdomen soft, non-tender, non-distended, no organomegaly Musculoskeletal: Pulses present and equal in all extremities, no peripheral edema Motor: no focal deficits noted Neurological: CN II-XII grossly intact, no focal motor or sensory deficits noted Skin: Intact with no visualized rashes Psych: Normal affect and mood Limitations: no limitations Course Vital Signs 07/26/23 11:35 Temperature 99.2 F Pulse Rate 68 Respiratory 20 Rate Blood Pressure 153/88 O2 Sat by Pulse 97 Oximetry EKG Findings - EKG Comments: EKG Findings:: My EKG interpretation: Ventricular rate 62, sinus rhythm,. 139, cures 93, QTc 394. No VA prolongation, no QTC prolongation, no ST or T-wave changes noted. Overall, this EKG is unremarkable Medical Decision Making - Medical Decision Making Was pt. sent in by a medical professional or institution (Dr. PA, MACHINE COMPOSITOR, urgent care, hospital, or half-way...) When possible be specific @ -No Did you speak to anyone other than the patient for history (EMS, parent, family, police, friend...)? What history was obtained from this source @ -No Did you review nursing and triage notes (agree or disagree)? Why? @ -I reviewed and agree with nursing and triage notes Were old charts reviewed (outside hosp., previous admission, EMS record, old EKG, old radiological studies, urgent care reports/EKG's, half-way records)? Report findings @ -No old charts were reviewed Differential Diagnosis (chest pain, altered mental status, abdominal pain women, abdominal pain men, vaginal bleeding, musculoskeletal, weakness, fever, dyspnea, syncope, headache, dizziness, GI bleed, back pain, seizure, CVA, palpatations, mental health)? @ -Differential Weakness: Hypoglycemia, shock, sepsis, hyponatremia, anemia, infection, [place], ETOH, adverse medicine reaction, overdose, stroke, this is not meant to be an all-inclusive list. EKG interpreted by me (3pts min.). @ -None done X-rays interpreted by me (1pt min.). @ -None done CT interpreted by me (1pt min.). @ -None done U/S interpreted by me (1pt. min.). @ -None done What testing was considered but not performed or refused? (CT, X-rays, U/S, labs)? Why? @ -None What meds were considered but not given or refused? Why? @ -None Did you discuss the management of the patient with other professionals (professionals i.e. Dr., PA, MACHINE COMPOSITOR, lab, RT, psych nurse, social psychologist, cattle feeder, teacher, principal gifts officer, case repairer)? Give summary @ -No Was smoking cessation discussed for >3mins.? @ -No Was critical care preformed (if so, how long)? @ -No Were there social determinants of health that impacted care today? How? (Homelessness, low income, unemployed, alcoholism, drug addiction, transportation, low edu. Level, literacy, decrease access to med. care, ch[facility], rehab)? @ -No Was there de-escalation of care discussed even if they declined (Discuss DNR or withdrawal of care, Hospice)? DNR status @ -No What co-morbidities impacted this encounter? (DM, HTN, Smoking, COPD, CAD, Cancer, CVA, ARF, Chemo, Hep., AIDS, mental health diagnosis, sleep apnea, morbid obesity)? @ -None Was patient admitted / discharged? Hospital course, mention meds given and route, prescriptions, significant lab abnormalities, going to OR and other pertinent info. @ -58-year-old male presents to the emergency department for chronic gait difficulties. Vital signs stable. Patient denies any acute symptoms at the bedside states that he feels at baseline. Is ongoing for 3 weeks. Laboratory evaluation shows leukocytosis unclear etiology. He has no focal complaints. Metabolic panel is negative. Patient told of these results told that he should follow-up his primary care doctor he has an appointment coming up in the near future. Return precautions discussed. Patient discharged Undiagnosed new problem with uncertain prognosis? @ -No Drug Therapy requiring intensive monitoring for toxicity (Heparin, Nitro, Insulin, Cardizem)? @ -No Were any procedures done? @ -No Diagnosis/symptom? Acute, or Chronic, or Acute on Chronic? Uncomplicated (without systemic symptoms) or Complicated (systemic symptoms)? @ -Generalized weakness Side effects of treatment? @ -No Exacerbation, Progression, or Severe Exacerbation? @ -No Poses a threat to life or bodily function? How? (Chest pain, [place], [place], pneumonia, PE, COPD, DKA, ARF, appy, cholecystitis, CVA, Diverticulitis, Homicidal, Suicidal, threat to staff... and all critical care pts) @ -No - Lab Data Result diagrams: 07/26/23 12:22 07/26/23 12:22 Lab Results 07/26/23 07/26/23 Range/Units 12:22 12:22 WBC 17.4 H (3.8-10.6) k/uL RBC 4.68 (4.30-5.90) m/uL Hgb 14.3 (13.0-17.5) gm/dL Hct 40.8 (39.0-53.0) % MCV 87.1 (80.0-100.0) fL MCH 30.5 (25.0-35.0) pg MCHC 35.0 (31.0-37.0) g/dL RDW 13.7 (11.5-15.5) % Plt Count 617 H (150-450) k/uL MPV 7.7 Neutrophils % 73 % Lymphocytes % 15 % Monocytes % 7 % Eosinophils % 3 % Basophils % 1 % Neutrophils # 12.7 H (1.3-7.7) k/uL Lymphocytes # 2.7 (1.0-4.8) k/uL Monocytes # 1.2 H (0-1.0) k/uL Eosinophils # 0.5 (0-0.7) k/uL Basophils # 0.1 (0-0.2) k/uL Sodium 135 L (137-145) mmol/L Potassium 4.7 (3.5-5.1) mmol/L Chloride 102 (98-107) mmol/L Carbon Dioxide 25 (22-30) mmol/L Anion Gap 8 mmol/L BUN 13 (9-20) mg/dL Creatinine 0.74 (0.66-1.25) mg/dL Est GFR (CKD-EPI)AfAm >90 (>60 ml/min/1.73 sqM) Est GFR (CKD-EPI)NonAf >90 (>60 ml/min/1.73 sqM) Glucose 94 (74-99) mg/dL Calcium 9.8 (8.4-10.2) mg/dL Disposition Clinical Impression: Weakness Disposition: HOME SELF-CARE Condition: Fair Instructions (If sedation given, give patient instructions): Leukocytosis (ED) Is patient prescribed a controlled substance at d/c from ED?: No Referrals: Montrell Cortes MD [Primary Care Provider] - 1-2 days Time of Disposition: 13:29
--- NOTE | 2023-07-26 12:36 | XR ---
EXAMINATION TYPE: XR chest 1V portable DATE OF EXAM: 07/26/2023 12:29 PM CLINICAL INDICATION:Male, 58 years old with history of dizziness; COMPARISON: Chest radiographs from 03/28/2022. TECHNIQUE: XR chest 1V portable Frontal view of the chest. FINDINGS: Lungs/Pleura: There is no evidence of pleural effusion, focal consolidation, or pneumothorax. Pulmonary vascularity: Unremarkable. Heart/mediastinum: Cardiomediastinal silhouette is unremarkable. Musculoskeletal: No acute osseous pathology. IMPRESSION: No acute cardiopulmonary disease/process.
[2023-07-26 12:46] LABS: Basophils # (A) 0.1 k/uL (0-0.2); Basophils % (A) 1 %; Eosinophils # (A) 0.5 k/uL (0-0.7); Eosinophils % (A) 3 %; HCT 40.8 % (39.0-53.0); HGB 14.3 gm/dL (13.0-17.5); Lymphocytes # (A) 2.7 k/uL (1.0-4.8); Lymphocytes % (A) 15 %; MCH 30.5 pg (25.0-35.0); MCV 87.1 fL (80.0-100.0); Mean Platelet Volume 7.7; Monocytes # (A) 1.2 k/uL (0-1.0); Monocytes % (A) 7 %; Neutrophils # (A) 12.7 k/uL (1.3-7.7); Neutrophils % (A) 73 %; Platelet Count 617 k/uL (150-450); RBC 4.68 m/uL (4.30-5.90); RDW 13.7 % (11.5-15.5); WBC 17.4 k/uL (3.8-10.6)
[2023-07-26 12:47] LABS: African American GFR (CKD) >90 (>60 ml/min/1.73 sqM); Anion Gap 8 mmol/L; Blood Urea Nitrogen 13 mg/dL (9-20); Calcium 9.8 mg/dL (8.4-10.2); Carbon Dioxide 25 mmol/L (22-30); Chloride 102 mmol/L (98-107); Glucose 94 mg/dL (74-99); Non-African American GFR(CKD) >90 (>60 ml/min/1.73 sqM); Potassium 4.7 mmol/L (3.5-5.1); Sodium 135 mmol/L (137-145)
[2023-07-26 14:33] VITALS: BP 119/75; RESP 16
== END 2023-07-26 14:19 | disposition home or self-care (01) ==
LOC: EC 11:33
DX: R53.1 Weakness (principal); F17.200 Nicotine dependence, unspecified, uncomplicated; Z88.1 Allergy status to other antibiotic agents
CPT/HCPCS: 36415; 71045; 80048; 85025; 93005; 99284

== ENCOUNTER → 2023-10-31 | Outpatient (CLI) | payer MEDICARE | END | disposition home or self-care (01) | LOC: LABWHC1 15:58 | PROVIDERS: ATTEND Psychiatry & Neurology Neurology | DX: R26.0 Ataxic gait (principal); Z79.899 Other long term (current) drug therapy | CPT/HCPCS: 36415; 82607; 82746; 83036; 84425 ==